=== PATIENT | male | born 1965 | race Caucasian/White ===

== ENCOUNTER 2017-03-17 03:20 | Inpatient (IN) | payer OTHER ==
[2017-03-17] MEDS ORDERED: KETOROLAC 15 MG/1 ML SDV IVP ONE (04:04)
[2017-03-17 04:28] LABS: ABSOLUTE IMMATURE GRANULOCYTES 0.24 10^3/uL (0.00-0.10); ADD DIFF? NO; ADD MORPH? NO; ADD SCAN? NO; ATYPICAL LYMPHOCYTE FLAG 0 (0-99); FRAGMENT RBC FLAG 0 (0-99); HEMATOCRIT 48.3 % (40.0-51.0); HEMOGLOBIN 16.9 g/dL (13.7-17.5); LEFT SHIFT FLG 10 (0-99); LIPEMIA HEMOLYSIS FLAG 90 (0-99); MEAN CELL HEMOGLOBIN 32.8 pg (27.9-34.1); MEAN CELL VOLUME 93.6 fL (81.5-99.8); MEAN PLATELET VOLUME 11.7 fL (8.7-11.7); PLATELET CLUMPS FLAG 10 (0-99); PLATELET COUNT 290 10^3/uL (150-400); RED BLOOD CELL COUNT 5.16 10^6/uL (4.40-6.38); RED CELL DISTRIBUTION WIDTH 12.9 % (11.5-15.2)
[2017-03-17 04:35] LABS: COLOR RED; LEUKOCYTE ESTERASE,URINE 2+ (NEGATIVE); NITRITE,URINE NEGATIVE (NEGATIVE)
[2017-03-17 04:41] LABS: ANION GAP 13 mEq/L (8-16); CALCIUM 10.2 mg/dL (8.5-10.4); CARBON DIOXIDE 20 mEq/l (22-31); CHLORIDE 103 mEq/L (97-110); CREATININE 1.1 mg/dL (0.7-1.3); GLOMERULAR FILTRATION RATE > 60; GLUCOSE 133 mg/dL (70-100); POTASSIUM 4.3 mEq/L (3.5-5.2); SODIUM 136 mEq/L (134-144)
[2017-03-17 04:52] LABS: BACTERIA 4+ /hpf (NONE SEEN); MUCUS 1+ /lpf (NONE-1+); RBC,URINE 50-182 /hpf (0-3); WBC,URINE 50-182 /hpf (0-3)
--- NOTE | 2017-03-17 05:50 | EDPHY ---
H & P Stated Complaint: rt flank pain, dark urine with "foam" Time Seen by Provider: 03/17/17 03:49 HPI/ROS: Chief Complaint: Right flank pain HPI: 51-year-old male presenting with right flank pain which started at 11 o' clock last night. Has been constant. Denies a history of the same. Did go for a hike on Friday has been feeling well yesterday. Some nausea no vomiting. Some subjective fevers and chills at home. No chest pain or shortness of breath. Moderate abdominal pain on the right-hand side. Pain is nonradiating. There are no aggravating or alleviating factors. He cannot find a comfortable position. It is described as constant at a 8/10. ROS: 10 point Review of Systems is negative except as noted in the HPI. 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, depression Medications: Wellbutrin Allergies: No known drug allergies Social History: No smoking, occasional alcohol, occasional marijuana Family History: non-contributory Physical Exam: Gen: Awake, Alert, No Distress HEENT: Nose: no rhinorrhea Eyes: PERRLA, EOMI Mouth: Moist mucosa Neck: Supple, no JVD Chest: nontender, lungs clear to auscultation Heart: S1, S2 normal, no murmur Abd: Soft, under right mid abdominal tenderness, no guarding Back: no CVA tenderness, no midline tenderness Ext: no edema, non-tender Skin: no rash Neuro: CN II-XII intact, Sensation grossly intact, Strength 5/5 in bilateral upper and lower extremities - Personal History Current Tetanus Diphtheria and Acellular Pertussis (TDAP): Yes Tetanus Vaccine Date: 2010 - Medical/Surgical History Hx Asthma: No Hx Chronic Respiratory Disease: No Hx Diabetes: No Hx Cardiac Disease: No Hx Renal Disease: No Hx Cirrhosis: No Hx Alcoholism: No Hx HIV/AIDS: No Hx Splenectomy or Spleen Trauma: No Other PMH: left shoulder surgery, wrist,anxiety - Social History Smoking Status: Former smoker Constitutional: Initial Vital Signs Temperature (C) 37.7 C 03/17/17 03:22 Heart Rate 116 H 03/17/17 03:22 Respiratory Rate 99 H 03/17/17 03:22 O2 Sat (%) 94 03/17/17 03:22 O2 Delivery Mode Nasal Cannula O2 (L/minute) 2 Allergies/Adverse Reactions: No Known Allergies Allergy (Verified 09/06/13 22:01) Home Medications: Medication Instructions Recorded buPROPion [Wellbutrin 100mg (RX)] 0 mg PO TID 04/23/13 Hydrocodone/APAP 5/325 [[place] 1 - 2 tab PO Q4H PRN #15 tab 04/21/16 5/325] Medical Decision Making - Diagnostics Imaging Results: With severe right hydronephrosis with obstruction at the UPJ with enlargement of the right kidney. Likely chronic as unchanged compared to a IV P from 2006. Interpreted by Dr. Brock. Imaging: I viewed and interpreted images myself ED Course/Re-evaluation: UA results noted. Concerning for definite pyelo or possible infected stone. Will obtain CT scan. White count is significantly elevated. I have ordered ceftriaxone IV. CT scan noted. Is as severe right hydronephrosis with UPJ obstruction. I have discussed with Dr. Jose Ortiz, urology. He is requesting Internal Medicine admission. He would like to contact interventional Radiology for a percutaneous nephrostomy tube placement. He will consult the patient on the floor. I have discussed with Dr. Rodriguez, interventional Radiology. She will plan on placement of the nephrostomy tube this morning. - Data Points Laboratory Results: Laboratory Results 03/17/17 03:40 03/17/17 03:40 03/17/17 03/17/17 03/17/17 03:40 03:40 03:40 WBC 23.37 10^3/uL H 10^3/uL (3.80-9.50) RBC 5.16 10^6/uL 10^6/uL (4.40-6.38) Hgb 16.9 g/dL g/dL (13.7-17.5) Hct 48.3 % % (40.0-51.0) MCV 93.6 fL fL (81.5-99.8) MCH 32.8 pg pg (27.9-34.1) MCHC 35.0 g/dL g/dL (32.4-36.7) RDW 12.9 % % (11.5-15.2) Plt Count 290 10^3/uL 10^3/uL (150-400) MPV 11.7 fL fL (8.7-11.7) Neut % (Auto) 76.6 % H % (39.3-74.2) Lymph % (Auto) 13.1 % L % (15.0-45.0) [place] % (Auto) 8.8 % % (4.5-13.0) Eos % (Auto) 0.1 % L % (0.6-7.6) Baso % (Auto) 0.4 % % (0.3-1.7) Nucleat RBC Rel Count 0.0 % % (0.0-0.2) Absolute Neuts (auto) 17.90 10^3/uL H 10^3/uL (1.70-6.50) Absolute Lymphs (auto) 3.06 10^3/uL H 10^3/uL (1.00-3.00) Absolute Monos (auto) 2.06 10^3/uL H 10^3/uL (0.30-0.80) Absolute Eos (auto) 0.02 10^3/uL L 10^3/uL (0.03-0.40) Absolute Basos (auto) 0.09 10^3/uL 10^3/uL (0.02-0.10) Absolute Nucleated RBC 0.00 10^3/uL 10^3/uL (0-0.01) Immature Gran % 1.0 % % (0.0-1.1) Immature Gran # 0.24 10^3/uL H 10^3/uL (0.00-0.10) Sodium 136 mEq/L mEq/L (134-144) Potassium 4.3 mEq/L mEq/L (3.5-5.2) Chloride 103 mEq/L mEq/L (97-110) Carbon Dioxide 20 mEq/l L mEq/l (22-31) Anion Gap 13 mEq/L mEq/L (8-16) BUN 16 mg/dL mg/dL (7-23) Creatinine 1.1 mg/dL mg/dL (0.7-1.3) Estimated GFR > 60 Glucose 133 mg/dL H mg/dL (70-100) Calcium 10.2 mg/dL mg/dL (8.5-10.4) Urine Color RED Urine Appearance MODERATELY TURBID Urine pH 6.0 (5.0-7.5) Ur Specific [place] 1.014 (1.002-1.030) Urine Protein 2+ H (NEGATIVE) Urine Ketones NEGATIVE (NEGATIVE) Urine Blood 3+ H (NEGATIVE) Urine Nitrate NEGATIVE (NEGATIVE) Urine Bilirubin NEGATIVE (NEGATIVE) Urine Urobilinogen NEGATIVE EU EU (0.2-1.0) Ur Leukocyte Esterase 2+ H (NEGATIVE) Urine RBC 50-182 /hpf H /hpf (0-3) Urine WBC 50-182 /hpf H /hpf (0-3) Ur Epithelial Cells TRACE /lpf /lpf (NONE-1+) Urine Bacteria 4+ /hpf H /hpf (NONE SEEN) Urine Mucus 1+ /lpf /lpf (NONE-1+) Urine Glucose NEGATIVE (NEGATIVE) Medications Given: Discontinued Medications Ceftriaxone Sodium/Dextrose (Rocephin 1 Gm (Premix)) 50 mls @ 100 mls/hr IV EDNOW ONE PRN Reason: Protocol Stop: 03/17/17 05:36 Last Admin: 03/17/17 05:25 Dose: 50 mls Ketorolac Tromethamine (Toradol) 15 mg IVP EDNOW ONE Stop: 03/17/17 04:05 Last Admin: 03/17/17 04:09 Dose: 15 mg Departure - Departure Disposition: [facility] Inpatient Acute Clinical Impression: Urinary tract infection, Hydronephrosis Condition: Fair Referrals: Fortunato Neely MD [Primary Care Provider] - As per Instructions
[2017-03-17] MEDS ORDERED: PROMETHAZINE HCL 25 MG TAB PO PRN (06:32)
[2017-03-17] MEDS ORDERED: ONDANSETRON DISINTEGRATING 4 MG TAB PO PRN (06:32)
[2017-03-17] MEDS ORDERED: PROMETHAZINE HCL 25 MG/ML INJ IVP PRN (06:32)
[2017-03-17] MEDS ORDERED: MAGNESIUM HYDROXIDE 30 ML UDCUP PO PRN (06:34)
[2017-03-17] MEDS ORDERED: LACTULOSE 20 GM/30 ML UDCUP PO PRN (06:34)
[2017-03-17] MEDS ORDERED: BISACODYL 10 MG SUPP PR PRN (06:34)
--- NOTE | 2017-03-17 07:52 | PDGENHP ---
History and Physical - Chief Complaint acute abdominal pain - History of Present Illness primary care provider: Dr. Neely HPI: 51-year-old male presenting with acute abdominal pain characterized as sharp, severe, located in the right flank with onset of symptoms at 11:30 p.m. on the evening of this presentation. He had associated foamy bloody urine and his onset of symptoms was very sudden. The duration has been persistent thereafter and has been mildly alleviated by Dilaudid received in the emergency department. Prior to his onset of symptoms he had otherwise been feeling well and he had physically exerting himself on the day prior to presentation, engaging in an extensive hike. Otherwise denies any recent medication changes reports that he has had good oral intake. He reports that the pain is similar in character to what he experienced 5 years ago when he had hydronephrosis requiring cystoscopy and stent placement at [facility]. History Information - Allergies/Home Medication List Allergies/Adverse Reactions: No Known Allergies Allergy (Verified 09/06/13 22:01) Home Medications: buPROPion [Wellbutrin 100mg (RX)] 0 mg PO TID 04/23/13 [Last Taken Unknown] I have personally reviewed and updated: family history, medical history, social history, surgical history - Past Medical History Additional medical history: Right kidney hydronephrosis and stent placement required, removed - Surgical History Additional surgical history: cystoscopy with stent placement approximately 5 years ago. Ganglion cyst removal - Social History Smoking Status: Former smoker Alcohol Use: Occasionally Drug Use: None Additional social history: physical exert himself a hike Review of Systems ROS: 10pt was reviewed & negative except for what was stated in HPI & below Gastrointestinal: Reports: vomitting, abdominal pain, other ( flank pain) Physical Exam Temp Pulse Resp BP Pulse Ox 36.7 C 72 18 127/89 H 96 03/17/17 06:48 03/17/17 06:48 03/17/17 06:48 03/17/17 06:48 03/17/17 06:48 O2 (L/minute) 2 Constitutional: no apparent distress, uncomfortable, No not in pain ( moderate) , No chronically ill appearing Eyes: PERRL, anicteric sclera, EOMI Ears, Nose, Mouth, Throat: moist mucous membranes, hearing normal, ears appear normal, no oral mucosal ulcers Cardiovascular: regular rate and rhythym, no murmur, rub, or gallop, No edema Respiratory: no respiratory distress, no rales or rhonchi, clear to auscultation Gastrointestinal: tenderness ( right flank), No normoactive bowel sounds ( hypoactive), No guarding, No distension Genitourinary: no bladder fullness, no bladder tenderness Neurologic: AAOx3, sensation intact bilaterally, No weakness ( motor 5/5 bilateral lower extremity) Psychiatric: interacting appropriately, not anxious, not encephalopathic, thought process linear Lab Data & Imaging Review 03/17/17 03:40 03/17/17 03:40 WBC 23.37 10^3/uL (3.80-9.50) H 03/17/17 03:40 RBC 5.16 10^6/uL (4.40-6.38) 03/17/17 03:40 Hgb 16.9 g/dL (13.7-17.5) 03/17/17 03:40 Hct 48.3 % (40.0-51.0) 03/17/17 03:40 MCV 93.6 fL (81.5-99.8) 03/17/17 03:40 MCH 32.8 pg (27.9-34.1) 03/17/17 03:40 MCHC 35.0 g/dL (32.4-36.7) 03/17/17 03:40 RDW 12.9 % (11.5-15.2) 03/17/17 03:40 Plt Count 290 10^3/uL (150-400) 03/17/17 03:40 MPV 11.7 fL (8.7-11.7) 03/17/17 03:40 Neut % (Auto) 76.6 % (39.3-74.2) H 03/17/17 03:40 Lymph % (Auto) 13.1 % (15.0-45.0) L 03/17/17 03:40 [place] % (Auto) 8.8 % (4.5-13.0) 03/17/17 03:40 Eos % (Auto) 0.1 % (0.6-7.6) L 03/17/17 03:40 Baso % (Auto) 0.4 % (0.3-1.7) 03/17/17 03:40 Nucleat RBC Rel Count 0.0 % (0.0-0.2) 03/17/17 03:40 Absolute Neuts (auto) 17.90 10^3/uL (1.70-6.50) H 03/17/17 03:40 Absolute Lymphs (auto) 3.06 10^3/uL (1.00-3.00) H 03/17/17 03:40 Absolute Monos (auto) 2.06 10^3/uL (0.30-0.80) H 03/17/17 03:40 Absolute Eos (auto) 0.02 10^3/uL (0.03-0.40) L 03/17/17 03:40 Absolute Basos (auto) 0.09 10^3/uL (0.02-0.10) 03/17/17 03:40 Absolute Nucleated RBC 0.00 10^3/uL (0-0.01) 03/17/17 03:40 Immature Gran % 1.0 % (0.0-1.1) 03/17/17 03:40 Immature Gran # 0.24 10^3/uL (0.00-0.10) H 03/17/17 03:40 Sodium 136 mEq/L (134-144) 03/17/17 03:40 Potassium 4.3 mEq/L (3.5-5.2) 03/17/17 03:40 Chloride 103 mEq/L (97-110) 03/17/17 03:40 Carbon Dioxide 20 mEq/l (22-31) L 03/17/17 03:40 Anion Gap 13 mEq/L (8-16) 03/17/17 03:40 BUN 16 mg/dL (7-23) 03/17/17 03:40 Creatinine 1.1 mg/dL (0.7-1.3) 03/17/17 03:40 Estimated GFR > 60 03/17/17 03:40 Glucose 133 mg/dL (70-100) H 03/17/17 03:40 Calcium 10.2 mg/dL (8.5-10.4) 03/17/17 03:40 Urine Color RED 03/17/17 03:40 Urine Appearance MODERATELY TURBID 03/17/17 03:40 Urine pH 6.0 (5.0-7.5) 03/17/17 03:40 Ur Specific [place] 1.014 (1.002-1.030) 03/17/17 03:40 Urine Protein 2+ (NEGATIVE) H 03/17/17 03:40 Urine Ketones NEGATIVE (NEGATIVE) 03/17/17 03:40 Urine Blood 3+ (NEGATIVE) H 03/17/17 03:40 Urine Nitrate NEGATIVE (NEGATIVE) 03/17/17 03:40 Urine Bilirubin NEGATIVE (NEGATIVE) 03/17/17 03:40 Urine Urobilinogen NEGATIVE EU (0.2-1.0) 03/17/17 03:40 Ur Leukocyte Esterase 2+ (NEGATIVE) H 03/17/17 03:40 Urine RBC 50-182 /hpf (0-3) H 03/17/17 03:40 Urine WBC 50-182 /hpf (0-3) H 03/17/17 03:40 Ur Epithelial Cells TRACE /lpf (NONE-1+) 03/17/17 03:40 Urine Bacteria 4+ /hpf (NONE SEEN) H 03/17/17 03:40 Urine Mucus 1+ /lpf (NONE-1+) 03/17/17 03:40 Urine Glucose NEGATIVE (NEGATIVE) 03/17/17 03:40 Visualized and Interpreted imaging results: Yes Interpretation: abdominal CT demonstrating right-sided hydronephrosis, approximately 14 cm, no identifiable stone, dilation and the UPJ Assessment & Plan Assessment: 51-year-old male presenting with acute hydronephrosis and pyelonephritis Plan: 1. Pyelonephritis. Acute, new problem this provider, further workup indicated. Evidenced by positive urinalysis, significant leukocytosis, flank tenderness in the setting of hydronephrosis, most likely predispose to obstruction in the same area that he has had prior issues - reviewed outside records including 09/06/2013 x-ray of the abdomen demonstrates no stone at that time - order outside records from [facility] to determine what the exact cause of his original obstruction was - discussed with Dr. Stewart in the emergency department, he has informed me that the patient has received 1 g of IV ceftriaxone - send urine culture - repeat CBC tomorrow a.m. - continue IV fluids high rate 2. Hydronephrosis. Acute on chronic, approximately 14 cm across, requiring urgent interventional procedure to decompress - discussed with Dr. Stewart, he has reported to me that urology recommended percutaneous nephrostomy tube and Dr. Heather Rodriguez has been contacted for placement this morning - continue to monitor urine output serum creatinine level Diet. NPO with IV fluids Prophylaxis. Low risk patient, SCDs hold pharm given procedure Code. Full Disposition. Anticipated discharge is 03/18/2017, pending further stabilization as outlined above.
[2017-03-17] MEDS: HYDROmorphONE/DILAUDID 1 MG/ML SYR IVP PRN ×3 (07:59→16:04)
[2017-03-17] MEDS: SENNOSIDES/DOCUSATE SODIUM TAB PO SCH ×2 (08:44→19:53)
[2017-03-17] MEDS: HYDROmorphONE/DILAUDID 2 MG TAB PO PRN ×3 (08:45→21:53)
[2017-03-17] MEDS: NS 1,000 ML IV SCH ×2 (08:46→19:11)
[2017-03-17] MEDS: ONDANSETRON 4 MG/2 ML VIAL IVP PRN ×2 (10:39→19:53)
[2017-03-17 11:32] LABS: APTT 26.3 SEC (23.0-38.0); INR 1.23 (0.83-1.16); PROTIME(PATIENT) 15.5 SEC (12.0-15.0)
[2017-03-17] MEDS ORDERED: fentaNYL 100 MCG/2 ML INJ ONE (12:04)
[2017-03-17] MEDS ORDERED: MIDAZOLAM 2 MG/2 ML VIAL ONE (12:05)
[2017-03-17] MEDS ORDERED: IOPAMIDOL (ISOVUE-300) 100 ML BTL ONE (12:25)
[2017-03-17] MEDS ORDERED: LIDOCAINE 1% 300 MG/30 ML SDV ONE (12:25)
--- NOTE | 2017-03-17 13:05 | POSTOPPROG ---
Post Op Note Date of Operation: 03/17/17 Surgeon: Cb Montes De Oca Anesthesia: IV Sedation Pre-op Diagnosis: UTI, right hydronephrosis without stone Post-op Diagnosis: same Indication: Obstructive Urosepsis Procedure: Percutaneous right nephrostomy Findings: Good position. Right UPJ obstruction, severe hydronephrosis Inf/Abcess present in the surg proc area at time of surgery?: Yes Depth: Organ Space (Right renal collecting system) Drains: Nephrostomy (10 F pigtail.) Specimen(s): 15 ml brown urine sent for microbiology.
[2017-03-17] MEDS: ACETAMINOPHEN 325 MG TAB PO PRN ×2 (16:03→21:06)
[2017-03-17] MEDS ORDERED: [UNRECOGNIZED DRUG - OTHER] PO PRN (17:44)
--- NOTE | 2017-03-17 17:45 | HOSPPROG ---
Hospitalist Progress Note Assessment/Plan: # sepsis d/t pyelo - resolved with IVF # pyelonephritis with acute on chronic R sided obstructive nephropathy s/p nephrostomy # R hydronephrosis 35 minutes of direct patient care, face to face time spent today from 5:10 to 5: 45 Objective: Vital Signs Temp Pulse Resp BP Pulse Ox 37.3 C 99 16 124/78 H 94 03/17/17 16:53 03/17/17 16:53 03/17/17 16:53 03/17/17 16:53 03/17/17 16:53 Microbiology 03/17/17 12:20 Gram Stain - Final Other - Aspirate 03/16/17 03/17/17 03/18/17 05:59 05:59 05:59 Intake Total 400 Output Total 350 Balance 50 PT 15.5 SEC (12.0-15.0) H 03/17/17 10:50 INR 1.23 (0.83-1.16) H 03/17/17 10:50 ICD10 Worksheet Patient Problems: Problems Problem Status Onset Hydronephrosis Acute Urinary tract infection Acute
--- NOTE | 2017-03-17 19:22 | SOAPPROG ---
SOAP Progress Note Assessment/Plan: Assessment: Hydronephrosis Acute UPJ obstruction and plan for drainage and assessment for repair in future Urinary tract infection Acute Rxed appropirately Plan: Continue present care 03/17/17 19:20 Subjective: flank pain and neph tube in place Objective: Vital Signs Temp Pulse Resp BP Pulse Ox 37.3 C 99 16 124/78 H 94 03/17/17 16:53 03/17/17 16:53 03/17/17 16:53 03/17/17 16:53 03/17/17 16:53 Microbiology 03/17/17 12:20 Gram Stain - Final Other - Aspirate 03/16/17 03/17/17 03/18/17 05:59 05:59 05:59 Intake Total 400 Output Total 650 Balance -250 PT 15.5 SEC (12.0-15.0) H 03/17/17 10:50 INR 1.23 (0.83-1.16) H 03/17/17 10:50 Physical Exam - Physical Exam General Appearance: alert Respiratory: No respiratory distress Cardiac/Chest: regular rate, rhythm Abdomen: soft Skin: warm/dry Extremities: No calf tenderness Neuro/Psych: alert, oriented x 3 ICD10 Worksheet Patient Problems: Problems Problem Status Onset Hydronephrosis Acute Urinary tract infection Acute
[2017-03-17] MEDS: buPROPion SR 150 MG TAB PO SCH (19:54)
[2017-03-18] MEDS: ACETAMINOPHEN 325 MG TAB PO PRN ×3 (00:18→21:21)
[2017-03-18] MEDS: NS 1,000 ML IV SCH ×3 (01:23→19:26)
[2017-03-18] MEDS: HYDROmorphONE/DILAUDID 1 MG/ML SYR IVP PRN (01:23)
[2017-03-18] MEDS: HYDROmorphONE/DILAUDID 2 MG TAB PO PRN ×2 (04:56→15:47)
[2017-03-18 05:52] LABS: % IMMATURE GRANULYOCYTES 0.7 % (0.0-1.1); ADD DIFF? NO; ADD MORPH? NO; ADD SCAN? NO; ATYPICAL LYMPHOCYTE FLAG 0 (0-99); FRAGMENT RBC FLAG 0 (0-99); HEMATOCRIT 41.7 % (40.0-51.0); HEMOGLOBIN 14.2 g/dL (13.7-17.5); LEFT SHIFT FLG 0 (0-99); LIPEMIA HEMOLYSIS FLAG 90 (0-99); MEAN CELL HEMOGLOBIN 33.1 pg (27.9-34.1); MEAN CELL HEMOGLOBIN CONCENTR. 34.1 g/dL (32.4-36.7); MEAN CELL VOLUME 97.2 fL (81.5-99.8); PLATELET CLUMPS FLAG 0 (0-99); PLATELET COUNT 213 10^3/uL (150-400); RED BLOOD CELL COUNT 4.29 10^6/uL (4.40-6.38)
[2017-03-18 06:21] LABS: ALANINE AMINOTRANSFERASE 40 IU/L (21-72); ALBUMIN 3.1 g/dL (3.5-5.0); ALKALINE PHOSPHATASE 44 IU/L (38-126); ANION GAP 9 mEq/L (8-16); ASPARTATE AMINOTRANSFERASE 24 IU/L (17-59); BILIRUBIN,TOTAL 1.2 mg/dL (0.1-1.4); CALCIUM 8.6 mg/dL (8.5-10.4); CARBON DIOXIDE 23 mEq/l (22-31); CHLORIDE 101 mEq/L (97-110); CREATININE 0.9 mg/dL (0.7-1.3); GLOMERULAR FILTRATION RATE > 60; GLUCOSE 104 mg/dL (70-100); POTASSIUM 3.9 mEq/L (3.5-5.2); SODIUM 133 mEq/L (134-144); TOTAL PROTEIN 5.6 g/dL (6.3-8.2)
[2017-03-18] MEDS: buPROPion SR 150 MG TAB PO SCH ×3 (08:16→21:27)
[2017-03-18] MEDS: SENNOSIDES/DOCUSATE SODIUM TAB PO SCH ×2 (08:16→21:20)
--- NOTE | 2017-03-18 15:48 | SOAPPROG ---
SOAP Progress Note Assessment/Plan: Assessment: Hydronephrosis Acute UPJ obstruction and plan for drainage and assessment for repair in future Urinary tract infection Acute Rxed appropirately for E. Coli, sensitivities pending Plan: Continue present care 03/18/17 15:47 Subjective: doing better Objective: Vital Signs Temp Pulse Resp BP Pulse Ox 37.4 C 91 16 113/78 91 L 03/18/17 08:00 03/18/17 08:00 03/18/17 08:00 03/18/17 08:00 03/18/17 08:00 Microbiology 03/17/17 12:20 Gram Stain - Final Other - Aspirate Laboratory Results 03/18/17 05:36 03/18/17 05:36 03/17/17 03/18/17 03/19/17 05:59 05:59 05:59 Intake Total 2775 Output Total 1575 1950 Balance 1200 -1950 PT 15.5 SEC (12.0-15.0) H 03/17/17 10:50 INR 1.23 (0.83-1.16) H 03/17/17 10:50 Physical Exam - Physical Exam General Appearance: alert Neck: supple Respiratory: No respiratory distress Abdomen: soft Neuro/Psych: alert ICD10 Worksheet Patient Problems: Problems Problem Status Onset Hydronephrosis Acute Urinary tract infection Acute
--- NOTE | 2017-03-18 15:52 | HOSPPROG ---
Hospitalist Progress Note Assessment/Plan: # sepsis d/t pyelo - resolved with IVF # pyelonephritis with acute on chronic R sided obstructive nephropathy s/p nephrostomy - e. coli in urine - cont rocephin, taper based on sensitivities # R hydronephrosis d/t congenital stricture - dr carlos involved Subjective: fevers last night Objective: Vital Signs Temp Pulse Resp BP Pulse Ox 37.4 C 91 16 113/78 91 L 03/18/17 08:00 03/18/17 08:00 03/18/17 08:00 03/18/17 08:00 03/18/17 08:00 Microbiology 03/17/17 12:20 Gram Stain - Final Other - Aspirate Laboratory Results 03/18/17 05:36 03/18/17 05:36 03/17/17 03/18/17 03/19/17 05:59 05:59 05:59 Intake Total 2775 Output Total 1575 1950 Balance 1200 -1950 PT 15.5 SEC (12.0-15.0) H 03/17/17 10:50 INR 1.23 (0.83-1.16) H 03/17/17 10:50 - Time Spent With Patient Time Spent with Patient: greater than 25 minutes Time Spent with Patient: Greater than 25 minutes spent on this patients care, greater than 50% of time spent counseling, educating, and coordinating care regarding the above mentioned plan. - Physical Exam Constitutional: no apparent distress, appears nourished Cardiovascular: regular rate and rhythym, no murmur, rub, or gallop, systolic murmur Respiratory: no respiratory distress, no rales or rhonchi, clear to auscultation Gastrointestinal: normoactive bowel sounds, tenderness (L sided), No ascites, No hepatosplenomegally, No guarding, No rebound, No distension ICD10 Worksheet Patient Problems: Problems Problem Status Onset Urinary tract infection Acute Hydronephrosis Acute
--- NOTE | 2017-03-18 16:17 | GCON ---
[f rep st] CONSULTATION DATE OF CONSULTATION: 03/17/2017 REASON FOR CONSULTATION: I have been asked to see this gentleman by Dr. Irving for a right-sided hy dronephrosis, UPJ and urosepsis. HISTORY OF PRESENT ILLNESS: This patient is a 51-year-old gentleman who had abdominal pain that was sharp and intense and seen in the emergency room,and a CAT scan revealed hydronephrosis with a UPJ obstruction. He had an elevated white count and appeared to have urosepsis. He was admitted to the hospital, and we had asked that a nephrostomy tube be placed. I reviewed the nephrostomy tube proc edure with the patient and the family member and tried to show him the problem and that he has a ure teropelvic junction obstruction. It is not sure why he previously had had a stent placed without re pair 5 years ago, but at the present time, he has the above diagnosis of urosepsis, pyelonephritis, hydronephrosis and primary ureteropelvic junction obstruction. ALLERGIES: No known drug allergies. MEDICATIONS: Wellbutrin. Family history, social history, surgical history, and medical history have been well documented; I braxton condon reviewed those. He has had the hydronephrosis noted before. He has had a cystoscopy stent plac ement 5 years ago and the a ganglion cystectomy. SOCIAL HISTORY: Former smoker. Occasional alcohol. Nondrug use. REVIEW OF SYSTEMS: Negative cardiac, respiratory, GI and endocrine. PHYSICAL EXAM: VITAL SIGNS: On admission, vital signs stable. CHEST: Clear. ABDOMEN: Normal. He had the right nephrostomy tube placed. I had attempted to see him at noon prior to that and that was not possible, so I saw him later. He had actually somewhat narcotized because of the narcotics use, but he was oriented x3. PSYCH: He had appropriate reaction to the medical assessment and the flank had some tenderness over the site where the nephrostomy tube was. LABORATORY DATA: I reviewed all his labs and imaging studies. At the present time, he is to be adm itted for percutaneous nephrostomy tube placement, IV antibiotics, hydration and monitoring. He jose r l need to have further assessment in the ureteropelvic junction with obstruction repair, i.e., pyelo plasty in the future. I discussed this potentially with him, indications, complications and options and will discuss that further when he has recovered from this acute medical septic event. /[id number]/MODL
[2017-03-18] MEDS ORDERED: LORazepam 0.5 MG TAB PO ONE (21:45)
[2017-03-19] MEDS: LORazepam 0.5 MG TAB PO PRN ×2 (04:15→08:11)
[2017-03-19 04:39] LABS: % IMMATURE GRANULYOCYTES 0.6 % (0.0-1.1); ABSOLUTE IMMATURE GRANULOCYTES 0.07 10^3/uL (0.00-0.10); ADD DIFF? NO; ADD MORPH? NO; ADD SCAN? NO; ATYPICAL LYMPHOCYTE FLAG 0 (0-99); FRAGMENT RBC FLAG 0 (0-99); HEMATOCRIT 40.1 % (40.0-51.0); HEMOGLOBIN 13.7 g/dL (13.7-17.5); LEFT SHIFT FLG 0 (0-99); LIPEMIA HEMOLYSIS FLAG 90 (0-99); MEAN CELL HEMOGLOBIN 32.9 pg (27.9-34.1); MEAN CELL HEMOGLOBIN CONCENTR. 34.2 g/dL (32.4-36.7); MEAN CELL VOLUME 96.4 fL (81.5-99.8); MEAN PLATELET VOLUME 10.6 fL (8.7-11.7); PLATELET CLUMPS FLAG 30 (0-99); PLATELET COUNT 215 10^3/uL (150-400); RED BLOOD CELL COUNT 4.16 10^6/uL (4.40-6.38); RED CELL DISTRIBUTION WIDTH 12.7 % (11.5-15.2)
[2017-03-19] MEDS: POLYETHYLENE GLYCOL 3350 17 GM PKT PO PRN (04:41)
[2017-03-19] MEDS: buPROPion SR 150 MG TAB PO SCH ×2 (08:11→21:53)
[2017-03-19] MEDS: SENNOSIDES/DOCUSATE SODIUM TAB PO SCH ×2 (08:11→21:53)
[2017-03-19] MEDS: DIAZEPAM 5 MG TAB PO PRN ×2 (15:45→22:00)
--- NOTE | 2017-03-19 15:46 | HOSPPROG ---
Hospitalist Progress Note Assessment/Plan: # sepsis d/t pyelo - resolved with IVF # pyelonephritis with acute on chronic R sided obstructive nephropathy s/p nephrostomy - e. coli in urine - cont rocephin, change to FQ on dc # R hydronephrosis d/t congenital stricture - dr carlos involved - planning definitive procedure after dc Subjective: ongoing R sided abd pain; significant sweats last night Objective: Vital Signs Temp Pulse Resp BP Pulse Ox 36.9 C 76 18 118/88 H 91 L 03/19/17 08:10 03/19/17 08:10 03/19/17 08:10 03/19/17 08:10 03/19/17 08:10 Laboratory Results 03/19/17 04:32 03/18/17 03/19/17 03/20/17 05:59 05:59 05:59 Intake Total 4575 Output Total 925 Balance 3650 PT 15.5 SEC (12.0-15.0) H 03/17/17 10:50 INR 1.23 (0.83-1.16) H 03/17/17 10:50 - Time Spent With Patient Time Spent with Patient: greater than 25 minutes Time Spent with Patient: Greater than 25 minutes spent on this patients care, greater than 50% of time spent counseling, educating, and coordinating care regarding the above mentioned plan. - Physical Exam Constitutional: no apparent distress, appears nourished Gastrointestinal: other (soft, some TTP R sided) ICD10 Worksheet Patient Problems: Problems Problem Status Onset Urinary tract infection Acute Hydronephrosis Acute
[2017-03-19] MEDS: ACETAMINOPHEN 325 MG TAB PO PRN (18:44)
[2017-03-19] MEDS: NS 1,000 ML IV SCH (22:02)
[2017-03-20 04:42] LABS: ABSOLUTE IMMATURE GRANULOCYTES 0.07 10^3/uL (0.00-0.10); ADD DIFF? NO; ADD MORPH? NO; ADD SCAN? NO; ATYPICAL LYMPHOCYTE FLAG 0 (0-99); FRAGMENT RBC FLAG 0 (0-99); HEMATOCRIT 40.7 % (40.0-51.0); HEMOGLOBIN 13.9 g/dL (13.7-17.5); LEFT SHIFT FLG 0 (0-99); LIPEMIA HEMOLYSIS FLAG 90 (0-99); MEAN CELL HEMOGLOBIN 32.6 pg (27.9-34.1); MEAN CELL HEMOGLOBIN CONCENTR. 34.2 g/dL (32.4-36.7); MEAN CELL VOLUME 95.5 fL (81.5-99.8); MEAN PLATELET VOLUME 10.4 fL (8.7-11.7); PLATELET CLUMPS FLAG 0 (0-99); PLATELET COUNT 234 10^3/uL (150-400); RED BLOOD CELL COUNT 4.26 10^6/uL (4.40-6.38); RED CELL DISTRIBUTION WIDTH 12.5 % (11.5-15.2)
[2017-03-20 05:04] LABS: ANION GAP 8 mEq/L (8-16); CALCIUM 9.2 mg/dL (8.5-10.4); CARBON DIOXIDE 26 mEq/l (22-31); CHLORIDE 104 mEq/L (97-110); CREATININE 1.1 mg/dL (0.7-1.3); GLOMERULAR FILTRATION RATE > 60; GLUCOSE 109 mg/dL (70-100); POTASSIUM 3.7 mEq/L (3.5-5.2); SODIUM 138 mEq/L (134-144)
[2017-03-20] MEDS: DIAZEPAM 5 MG TAB PO PRN ×3 (06:40→22:39)
[2017-03-20] MEDS: POLYETHYLENE GLYCOL 3350 17 GM PKT PO PRN (06:42)
[2017-03-20] MEDS: buPROPion SR 150 MG TAB PO SCH ×2 (08:43→21:06)
[2017-03-20] MEDS: SENNOSIDES/DOCUSATE SODIUM TAB PO SCH ×2 (08:43→21:05)
[2017-03-20] MEDS: HYDROCODONE/APAP 5/325 TAB PO PRN ×4 (09:13→22:38)
--- NOTE | 2017-03-20 10:50 | HOSPPROG ---
Hospitalist Progress Note Assessment/Plan: # sepsis d/t pyelo - resolved with IVF # pyelonephritis with acute on chronic R sided obstructive nephropathy s/p nephrostomy - e. coli in urine, arce-sensitive - cont rocephin, change to FQ on dc - check renal US today given ongoing borderline fevers and night sweats # R hydronephrosis d/t congenital stricture - dr carlos involved - planning definitive procedure after dc Subjective: had night sweats again last night; pain better overall Objective: Vital Signs Temp Pulse Resp BP Pulse Ox 36.3 C 73 16 126/88 H 93 03/20/17 08:28 03/20/17 08:28 03/20/17 08:28 03/20/17 08:28 03/20/17 08:28 Laboratory Results 03/20/17 04:36 03/20/17 04:36 03/19/17 03/20/17 03/21/17 05:59 05:59 05:59 Intake Total 4575 3295 Output Total 925 2175 425 Balance 3650 1120 -425 PT 15.5 SEC (12.0-15.0) H 03/17/17 10:50 INR 1.23 (0.83-1.16) H 03/17/17 10:50 - Physical Exam Constitutional: no apparent distress, appears nourished Cardiovascular: regular rate and rhythym, no murmur, rub, or gallop Respiratory: no respiratory distress, no rales or rhonchi, clear to auscultation Gastrointestinal: normoactive bowel sounds, soft, non-tender abdomen ICD10 Worksheet Patient Problems: Problems Problem Status Onset Urinary tract infection Acute Hydronephrosis Acute
[2017-03-20] MEDS: NS 1,000 ML IV SCH ×2 (10:53→18:33)
[2017-03-21] MEDS: HYDROCODONE/APAP 5/325 TAB PO PRN ×4 (02:44→16:46)
[2017-03-21] MEDS: DIAZEPAM 5 MG TAB PO PRN ×3 (05:45→18:30)
[2017-03-21] MEDS: SENNOSIDES/DOCUSATE SODIUM TAB PO SCH ×2 (09:09→21:35)
[2017-03-21] MEDS: buPROPion SR 150 MG TAB PO SCH ×2 (09:10→21:35)
[2017-03-21] MEDS ORDERED: IOPAMIDOL (ISOVUE-300) 100 ML BTL ONE (13:47)
--- NOTE | 2017-03-21 13:54 | HOSPPROG ---
Hospitalist Progress Note Assessment/Plan: DIAGNOSES: # sepsis d/t pyelo - resolved with IVF # pyelonephritis with acute on chronic R sided obstructive nephropathy s/p nephrostomy - e. coli in urine, arce-sensitive - continue rocephin, change to FQ on dc - as his pain has changed in location in suggest to me possibility of psoas involvement, I will order a CT scan to rule out developing psoas abscess or other abscess # R hydronephrosis d/t congenital stricture - I reviewed with Estelle Peraza of Nephrology today. Plan will be to continue to treat him with antibiotics and drainage until complete clearance of infection, at which point he can follow up in clinic with Dr. Shane to plan surgery as described in Dr. Shane consult SUBJECTIVE: overall the patient feels better However he has ongoing pain but the pain is changed in nature and location. At this point he has pain in the right lower groin with any flexion of the right hip and pain in the posterior right lumbar pelvic area with flexion of the left hip against gravity. These pains are aggravated with walking. No nausea or vomiting No fever symptoms OBJECTIVE Vitals reviewed: stable without fever Exam: alert oriented skin warm dry color ok resps not labored lungs clear BSs heart regular abd soft nondistended nontender, bowel sounds present; there is still tenderness in the right mid abdomen over his kidney as well as fairly marked good costovertebral angle tenderness with percussion limbs warm, no edema iv site ok all lab and culture data reviewed today Objective: Vital Signs Temp Pulse Resp BP Pulse Ox 36.5 C 75 20 133/94 H 94 03/21/17 08:23 03/21/17 11:30 03/21/17 11:30 03/21/17 11:30 03/21/17 11:30 Laboratory Results 03/20/17 04:36 03/20/17 04:36 03/20/17 03/21/17 03/22/17 06:59 06:59 06:59 Intake Total 3295 1300 Output Total 2175 1425 Balance 1120 -125 PT 15.5 SEC (12.0-15.0) H 03/17/17 10:50 INR 1.23 (0.83-1.16) H 03/17/17 10:50 - Time Spent With Patient Time Spent with Patient: greater than 35 minutes Time Spent with Patient: Greater than 35 minutes spent on this patients care, greater than 50% of time spent counseling, educating, and coordinating care regarding the above mentioned plan. ICD10 Worksheet Patient Problems: Problems Problem Status Onset Hydronephrosis Acute Urinary tract infection Acute
[2017-03-21] MEDS: NS 1,000 ML IV SCH (18:33)
[2017-03-22] MEDS: HYDROCODONE/APAP 5/325 TAB PO PRN ×3 (00:17→12:35)
[2017-03-22] MEDS: DIAZEPAM 5 MG TAB PO PRN ×2 (00:17→08:32)
[2017-03-22] MEDS: NS 1,000 ML IV SCH ×2 (02:16→09:42)
[2017-03-22 09:11] VITALS: BP 113/79; PULSE 80; RESP 16; TEMP 98.2; O2SAT 93
[2017-03-22] MEDS: buPROPion SR 150 MG TAB PO SCH (10:29)
[2017-03-22] MEDS: SENNOSIDES/DOCUSATE SODIUM TAB PO SCH (10:29)
--- NOTE | 2017-03-22 11:32 | PDDCSUM ---
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 Sudhakar Shane urology PROCEDURES: CT scan of abdomen without contrast Retroperitoneal ultrasound CT scan of abdomen pelvis with contrast HOSPITAL COURSE SUMMARY: This patient presented to the hospital with right flank pain and fevers and acute sepsis. He was found to have evidence of urinary tract infection and pyelonephritis in the setting of chronic right ureteropelvic junction obstruction and hydronephrosis. Cultures grew a sensitive E coli. He was fluid resuscitated and started promptly on antibiotics. He also had placement of a percutaneous nephrostomy drain tube which remains in place. He has recovered nicely. He still has a little bit of pain In the right flank however it is much improved and is up ambulating well and eating well. His percutaneous nephrostomy drain is functioning normally. At this point he is stable for discharge to home with ongoing antibiotics. He is evaluated here by Dr. Sudhakar Shane. Dr. Shane is recommending that we replant his ureter in a more normal in functional location on his bladder once he has recovered completely from his infection. The patient will follow up with Dr. Shane in clinic to arrange this procedure. PENDING TEST RESULTS: None The patient is instructed on the home care of his urostomy tube and bag. MEDICATION CHANGES: Addition of levofloxacin 750 mg daily to complete total 2 week antibiotic course FOLLOW-UP PLAN: with Dr Shane in clinic next week Greater than 35 minutes bedside and care coordination time today
== END 2017-03-22 14:30 | disposition home or self-care (01) | DRG 872 ==
LOC: F1N 08:30 → OBSVTOIN 03-18 15:52
PROVIDERS: ADMIT Internal Medicine; ATTEND Internal Medicine
PROC: 0T9030Z Drainage of Right Kidney with Drainage Device, Percutaneous Approach (ICD-10-PCS; principal; 2017-03-17 12:40)
DX: A41.9 Sepsis, unspecified organism (principal); B96.20 Unspecified Escherichia coli [E. coli] as the cause of diseases classified elsewhere; N13.6 Pyonephrosis; Q62.0 Congenital hydronephrosis
CPT/HCPCS: 96365; C1729; C1769; G0378; J0696; J1170; J1644; J1885; J2250; J2405; J3010; Q9967

== ENCOUNTER → 2017-03-26 | Day surgery (SDC) | payer OTHER ==
[~2017-03-26] MED LIST: IOPAMIDOL (ISOVUE-300) 100 ML BTL ONE
== END | disposition home or self-care (01) ==
LOC: FIMAGING 14:02
PROVIDERS: ATTEND Specialist
DX: Z43.6 Encounter for attention to other artificial openings of urinary tract (principal); N13.9 Obstructive and reflux uropathy, unspecified
CPT/HCPCS: Q9967

== ENCOUNTER 2017-04-01 11:28 | Observation (INO) | payer OTHER ==
--- NOTE | 2017-03-31 18:13 | GHP ---
[f rep st] PREOP HISTORY AND PHYSICAL DATE OF ADMISSION: 04/01/2017 ADMISSION DIAGNOSIS: Right ureteropelvic junction obstruction. HISTORY OF PRESENT ILLNESS: This is a 51-year-old gentleman who has a right ureteropelvic junction obstruction and has had a nephrostomy tube for treatment after hydronephrosis and pyelonephritis. Rex oliver has had a nephrostogram that reveals complete obstruction at the present time, and he is admitted for a right-sided robotic-assisted dismembered pyeloplasty. Indication, complications, and options have been discussed. Written and verbal consent has been obtained. He has good urinary output of t hat kidney and nephrectomy seems to be not indicated at this time. PAST MEDICAL HISTORY: He has had BPH with obstruction, hydronephrosis of the kidney, UPJ obstructio n to the right, and history of urosepsis. PAST SURGERY: Ureteral stent, vasectomy, wrist and shoulder. MEDICATIONS: Include bupropion hydrochloride 150 mg a day, diazepam 5 mg, hydrocodone 5/325. ALLERGIES: No known drug allergies. FAMILY HISTORY: Positive for kidney stones. SOCIAL HISTORY: Moderate alcohol consumption. Former smoker. 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 Denies illicit subs tance use. IMMUNIZATIONS: He had influenza in 2017 as well as PCV 2017. REVIEW OF SYSTEMS: Negative for cardiac, respiratory, GI, and endocrine. Positive nocturia occasio raghavendra. PHYSICAL EXAMINATION: VITAL SIGNS: On admission, blood pressure 124/84, heart rate 90, respiration s 16, BMI 30.41. HEAD EARS, EYES, NOSE, THROAT: Normal. CHEST: Clear. HEART: Regular rate and rhythm. ABDOMEN: Normal. No organomegaly, rebound, or guarding. EXTREMITIES: Lower extremities are normal. At the present time, he is admitted for a robotic-assisted right dismembered pyeloplasty. Indicatio n, complications, and options have been discussed. Written and verbal consent was obtained. He is admitted for the above procedure. /[id number]/MODL
--- NOTE | 2017-04-01 11:48 | PDHPUP ---
History & Physical Update H&P update statement: This history and physical update is based on an assessment of the patient which was completed after admission or registration (within 24 hours), but prior to the surgery/procedure. H&P update: H&P reviewed & patient examined, no change in patient's condition since H&P completed
[2017-04-01] MEDS ORDERED: ceFAZolin 2 GM/DEXTROSE 100 ML IV ONE (11:49)
[2017-04-01] MEDS ORDERED: LR 1,000 ML IV ONE (12:02)
--- NOTE | 2017-04-01 12:08 | PDANEPAE ---
ANE History of Present Illness pyeloplasty ANE Past Medical History - Cardiovascular History Hx Hypertension: No Hx Arrhythmias: No Hx Chest Pain: No Hx Coronary Artery / Peripheral Vascular Disease: No Hx CHF / Valvular Disease: No Hx Palpitations: No - Pulmonary History Hx COPD: No Hx Recent Upper Respiratory Infection: No Hx Oxygen in Use at Home: No - Endocrine History Hx Diabetes: No - Renal History Hx Renal Disorders: Yes - Liver History Hx Hepatic Disorders: No - Chronic Pain History Chronic Pain: No ANE Review of Systems - Exercise capacity METS (RN): 4 METS ANE Patient History - Allergies Allergies/Adverse Reactions: No Known Allergies Allergy (Verified 09/06/13 22:01) - Home Medications Home medications: home medication list seen and reviewed Home Medications: Aspirin [Aspirin 81mg (*)] 81 mg PO DAILY 03/17/17 [Last Taken 03/16/17] Avanafil [Stendra] 100 mg PO DAILY PRN 03/17/17 [Last Taken Unknown] Herbals/Supplements -Info Only 1 ea PO DAILY 03/17/17 [Last Taken Unknown] buPROPion SR [Wellbutrin 150mg SR (*)] 150 mg PO BID 03/17/17 [Last Taken 09:00] - NPO status NPO Since - Liquids (Date): 03/31/17 NPO Since - Liquids (Time): 04:00 NPO Since - Solids (Date): 03/31/17 NPO Since - Solids (Time): 22:00 - Anes Hx Anes Hx: no prior problems - Smoking Hx Smoking Status: Former smoker ANE Labs/Vital Signs - Vital Signs Blood Pressure: 109/80 Heart Rate: 81 Respiratory Rate: 18 O2 Sat (%): 92 Height: 172.72 cm Weight: 92.986 kg ANE Physical Exam - Airway Mallampati Score: Class 2 Mouth exam: normal dental/mouth exam - Pulmonary Pulmonary: no respiratory distress - Cardiovascular Cardiovascular: regular rate and rhythym - ASA Status ASA Status: II ANE Anesthesia Plan Anesthesia Plan: general endotracheal anesthesia
[2017-04-01] MEDS ORDERED: ROCURONIUM 100 MG/10 ML VIAL ONE (12:12)
[2017-04-01] MEDS ORDERED: ONDANSETRON 4 MG/2 ML VIAL ONE (12:12)
[2017-04-01] MEDS ORDERED: LIDOCAINE 2% 5 ML SDV ONE (12:12)
[2017-04-01] MEDS ORDERED: DEXAMETHASONE 4 MG/ML VIAL ONE (12:12)
[2017-04-01] MEDS ORDERED: PROPOFOL 200 MG/20 ML VIAL ONE (12:13)
[2017-04-01] MEDS ORDERED: fentaNYL 100 MCG/2 ML INJ ONE ×4 (12:13→16:22)
[2017-04-01] MEDS ORDERED: MIDAZOLAM 2 MG/2 ML VIAL IVP ONE (12:43)
[2017-04-01] MEDS ORDERED: ONDANSETRON 4 MG/2 ML VIAL IVP PRN ×2 (13:50→15:29)
[2017-04-01] MEDS ORDERED: LR 500 ML IV PRN (13:50)
[2017-04-01] MEDS ORDERED: MEPERIDINE 25 MG/ML SYR IVP PRN (13:50)
[2017-04-01] MEDS ORDERED: LABETALOL HCL 50 MG/10 ML SYR IVP PRN (13:50)
[2017-04-01] MEDS ORDERED: NALOXONE HCL 0.4 MG/ML INJ IVP PRN ×2 (13:50→15:29)
[2017-04-01] MEDS ORDERED: PROMETHAZINE HCL 25 MG/ML INJ IVP PRN (13:50)
[2017-04-01] MEDS ORDERED: ALBUTEROL 3 ML DEYVIAL IH PRN (13:50)
[2017-04-01] MEDS ORDERED: ROCURONIUM 50 MG/5 ML VIAL ONE (14:22)
[2017-04-01] MEDS ORDERED: THROMBIN(HUM PLAS)/FIBRINOG/CA 5 ML VIAL TP ONE ×2 (14:41→14:52)
[2017-04-01] MEDS ORDERED: SURGIFLO MATRIX KIT WITH THROMBIN TP ONE (14:45)
[2017-04-01] MEDS ORDERED: BUPIVACAINE/EPI 0.5% 30 ML SDV ONE (14:53)
[2017-04-01] MEDS ORDERED: HYDROmorphONE/DILAUDID 2 MG/ML INJ ONE (15:07)
[2017-04-01] MEDS ORDERED: SUGAMMADEX SODIUM 200 MG/2 ML VIAL IVP ONE (15:10)
[2017-04-01] MEDS ORDERED: ACETAMINOPHEN 325 MG TAB PO PRN (15:29)
[2017-04-01] MEDS ORDERED: ONDANSETRON DISINTEGRATING 4 MG TAB PO PRN (15:29)
--- NOTE | 2017-04-01 15:36 | POSTOPPROG ---
Post Op Note Date of Operation: 04/01/17 Surgeon: Sudhakar Shane Electrician Underground: Brooke Anesthesiologist: Geovani Anesthesia: GET(General Endotracheal) Pre-op Diagnosis: rt UPJ obst Post-op Diagnosis: same Indication: same Procedure: RA pyeloplasty Inf/Abcess present in the surg proc area at time of surgery?: No EBL: Minimal Complications: none==dictated op note Drains: Other (stent and vazquez)
--- NOTE | 2017-04-01 15:41 | POSTANESTH ---
Post Anesthetic Evaluation Cardiovascular Status: Normal, Stable Respiratory Status: Normal, Stable Level of Consciousness/Mental Status: Can Participate in Eval Pain Control: Adequate, Prn Tx Ordered Nausea/Vomiting Control: Adequate, Prn Tx Ordered Complications Possibly Related to Anesthesia: None Noted
[2017-04-01] MEDS ORDERED: HYDROmorphONE/DILAUDID 1 MG/ML SYR ONE ×2 (15:50→16:23)
[2017-04-01] MEDS: fentaNYL 100 MCG/2 ML INJ IVP PRN ×4 (15:53→17:09)
[2017-04-01] MEDS: HYDROmorphONE/DILAUDID 1 MG/ML SYR IVP PRN ×6 (15:54→17:08)
[2017-04-01] MEDS ORDERED: KETOROLAC 30 MG/1 ML SDV ONE (16:53)
[2017-04-01] MEDS ORDERED: KETOROLAC 30 MG/1 ML SDV IVP ONE (17:15)
[2017-04-01] MEDS: HYDROmorphONE/DILAUDID 6 MG/30 ML PCA IV PRN (17:57)
[2017-04-01] MEDS: D5W 1/2 NS 1,000 ML IV SCH (17:57)
--- NOTE | 2017-04-01 20:53 | GOP ---
[f rep st] OPERATIVE REPORT DATE OF OPERATION: 04/01/2017 SURGEON: Sudhakar Shane MD POWER HOUSE ENGINEER: Cathi Cox CFA ANESTHESIA: General anesthesia. ANESTHESIOLOGIST: Qasim Olivo MD PREOPERATIVE DIAGNOSIS: Right ureteropelvic junction obstruction. POSTOPERATIVE DIAGNOSIS: Right ureteropelvic junction obstruction. PROCEDURE PERFORMED: Robotic assisted dismembered pyeloplasty (right), ureterotomy for stent placement FINDINGS: Lower pole crossing renal artery causing obstruction SPECIMENS: None obtained. ESTIMATED BLOOD LOSS: Per Anesthesia, less than 50 mL. DESCRIPTION OF PROCEDURE: Mayra underwent general anesthesia and was prepped and draped in normal sterile fashion in the robot position for access to his right ureteropelvic junction. After appropriate time-out and prep and drape, Ioban placed over the abdomen. He had a Veress needle placed in Judd point and insufflated his abdomen to 15 mmHg pressure with carbon dioxide. Then placed a camera port and 1 esl instructional assistant port (each 12 mm), and then two 8 mm robot arm ports. At that point, mobilized the colon, identified the ureter and gonadal vein, dissected the ureter up to the UPJ obstruction. He had a crossing artery at the lower pole, and that was dissected out, and the ureter and UPJ were transected. I spatulated the ureter and brought it anterior to the vessels and then did an anastomosis with a 4-0 Vicryl continuous stitch. It was bridged with a 4-Citizen Of [place] 4.7 multi-length stent that was passed through a 14 Angiocath over a Sensor wire through ureterotomy. It curled in the renal pelvis and, with the length of such, it was in the bladder. Then at that point , after doing the anastomosis, the ureter to the UPJ was off tension and had no suggestion of ischemia. I used biologic glue to reenforce the anastomosis. I elected to not place a drain. He has a nephrostomy tube in. Will let the nephrostomy tube drain tonight and have a nephrostogram tomorrow gently, and have it removed under fluoroscopic guidance via Interventional Radiology. He tolerated the procedure well. PROCEDURE: Right robotic-assisted dismembered pyeloplasty and ureteral stent placement intraoperatively. /[id number]/MODL MTDD
[2017-04-01] MEDS: KETOROLAC 15 MG/1 ML SDV IVP SCH (21:33)
[2017-04-02] MEDS: KETOROLAC 15 MG/1 ML SDV IVP SCH ×3 (04:52→21:35)
[2017-04-02 05:09] LABS: % IMMATURE GRANULYOCYTES 0.6 % (0.0-1.1); ABSOLUTE IMMATURE GRANULOCYTES 0.08 10^3/uL (0.00-0.10); ADD DIFF? NO; ADD MORPH? NO; ADD SCAN? NO; ATYPICAL LYMPHOCYTE FLAG 10 (0-99); FRAGMENT RBC FLAG 0 (0-99); HEMATOCRIT 43.9 % (40.0-51.0); LEFT SHIFT FLG 0 (0-99); LIPEMIA HEMOLYSIS FLAG 90 (0-99); MEAN CELL HEMOGLOBIN 32.4 pg (27.9-34.1); MEAN CELL HEMOGLOBIN CONCENTR. 34.2 g/dL (32.4-36.7); MEAN CELL VOLUME 94.8 fL (81.5-99.8); PLATELET CLUMPS FLAG 0 (0-99); PLATELET COUNT 414 10^3/uL (150-400); RED BLOOD CELL COUNT 4.63 10^6/uL (4.40-6.38); RED CELL DISTRIBUTION WIDTH 12.5 % (11.5-15.2)
[2017-04-02 05:25] LABS: ANION GAP 10 mEq/L (8-16); CALCIUM 9.8 mg/dL (8.5-10.4); CARBON DIOXIDE 23 mEq/l (22-31); CHLORIDE 101 mEq/L (97-110); CREATININE 0.8 mg/dL (0.7-1.3); GLOMERULAR FILTRATION RATE > 60; GLUCOSE 130 mg/dL (70-100); POTASSIUM 4.7 mEq/L (3.5-5.2); SODIUM 134 mEq/L (134-144)
--- NOTE | 2017-04-02 07:22 | SOAPPROG ---
SOAP Progress Note Assessment/Plan: Assessment: Hydronephrosis Acute POD 1, doing well, consider DC Plan: as noted 04/02/17 07:20 Subjective: doing well Objective: Vital Signs Temp Pulse Resp BP Pulse Ox 36.5 C 79 18 100/77 93 04/02/17 04:35 04/02/17 04:35 04/02/17 04:35 04/02/17 04:35 04/02/17 04:35 Laboratory Results 04/02/17 05:00 04/02/17 05:00 04/01/17 04/02/17 04/03/17 05:59 05:59 05:59 Intake Total 2575 Output Total 1725 Balance 850 Physical Exam - Physical Exam General Appearance: alert Neck: supple Respiratory: No respiratory distress Cardiac/Chest: regular rate, rhythm Abdomen: soft Male Genitalia: other (catheter ok) Back: No CVA tenderness Extremities: No calf tenderness Neuro/Psych: alert, oriented x 3 ICD10 Worksheet Patient Problems: Problems Problem Status Onset Hydronephrosis Acute Urinary tract infection Acute
[2017-04-02] MEDS: oxyCODONE IR 5 MG TAB PO PRN (10:21)
[2017-04-02] MEDS ORDERED: IOPAMIDOL (ISOVUE-300) 100 ML BTL ONE (13:01)
[2017-04-02] MEDS: HYDROmorphONE/DILAUDID 6 MG/30 ML PCA IV PRN (16:05)
[2017-04-02] MEDS: D5W 1/2 NS 1,000 ML IV SCH (16:11)
[2017-04-03] MEDS: D5W 1/2 NS 1,000 ML IV SCH (04:43)
[2017-04-03] MEDS: KETOROLAC 15 MG/1 ML SDV IVP SCH ×2 (04:43→13:47)
--- NOTE | 2017-04-03 08:54 | SOAPPROG ---
SOAP Progress Note Assessment/Plan: Assessment: Hydronephrosis Acute POD 2, doing well, consider DC if GI tract and tract fx Plan: as noted 04/03/17 10:49 Subjective: doing well, need to pass gas Objective: Vital Signs Temp Pulse Resp BP Pulse Ox 37.0 C 59 L 18 115/56 L 95 04/03/17 04:00 04/03/17 06:00 04/03/17 06:00 04/03/17 06:00 04/03/17 06:00 Laboratory Results 04/02/17 05:00 04/02/17 05:00 04/02/17 04/03/17 04/04/17 05:59 05:59 05:59 Intake Total 2573 4253.2 Output Total 1725 3000 Balance 850 1253.2 ICD10 Worksheet Patient Problems: Problems Problem Status Onset Hydronephrosis Acute Urinary tract infection Acute
[2017-04-03] MEDS ORDERED: MAGNESIUM HYDROXIDE 30 ML UDCUP PO ONE (10:44)
[2017-04-03] MEDS: oxyCODONE IR 5 MG TAB PO PRN ×2 (12:13→19:31)
[2017-04-03 12:36] VITALS: RESP 16
[2017-04-03 22:45] VITALS: O2SAT 93
[2017-04-03] MEDS: IBUPROFEN 800 MG TAB PO SCH (22:49)
[2017-04-04] MEDS: oxyCODONE IR 5 MG TAB PO PRN (00:29)
[2017-04-04 05:03] VITALS: PULSE 68
[2017-04-04] MEDS: IBUPROFEN 800 MG TAB PO SCH (05:14)
[2017-04-04 08:02] VITALS: BP 123/99; TEMP 98.2
--- NOTE | 2017-04-04 12:57 | GDS ---
[f rep st] DISCHARGE SUMMARY PREOPERATIVE DIAGNOSIS: Right ureteropelvic junction obstruction. POSTOPERATIVE DIAGNOSIS: Right ureteropelvic junction obstruction. The patient was evaluated in our office for right-sided hydronephrosis. After review of imaging, di scussion of options, he elected to have a robotic-assisted pyeloplasty of the right and a ureterotom y for stent placement. He underwent this procedure without difficulty. He is being discharged home in good condition. He is to follow up in our office in approximately 3-4 weeks for consideration o f stent removal. /[id number]/MODL
== END 2017-04-04 11:34 | disposition home or self-care (01) ==
LOC: INTOOBSV 11:28 → F3E 11:28 → F1N 17:48
PROVIDERS: ADMIT Specialist; ATTEND Specialist
PROC: 0T760DZ Dilation of Right Ureter with Intraluminal Device, Open Approach (ICD-10-PCS; principal; 2017-04-01 12:45)
PROC: 0TQ30ZZ Repair Right Kidney Pelvis, Open Approach (ICD-10-PCS; principal; 2017-04-01 12:45)
DX: N13.0 Hydronephrosis with ureteropelvic junction obstruction (principal)
CPT/HCPCS: 50400; 50605; C1769; G0378; C2625; J0690; J1100; J1170; J1885; J2250; J2405; J2704; J3010; Q9967

== ENCOUNTER → 2017-05-27 | Outpatient (CLI) | payer OTHER ==
[~2017-05-27] MED LIST changes: +FUROSEMIDE 40 MG/4 ML VIAL ONE; -IOPAMIDOL (ISOVUE-300) 100 ML BTL ONE
== END ==
LOC: FIMAGING 11:06
PROVIDERS: ATTEND Specialist
DX: Z09 Encounter for follow-up examination after completed treatment for conditions other than malignant neoplasm (principal); N13.30 Unspecified hydronephrosis; Z98.890 Other specified postprocedural states
CPT/HCPCS: A9562; J1940

== ENCOUNTER 2017-07-21 12:03 | Emergency (ER) | payer OTHER ==
[2017-07-21] MEDS ORDERED: ONDANSETRON 4 MG/2 ML VIAL IVP ONE (12:32)
--- NOTE | 2017-07-21 12:49 | CPEKG ---
Heart Rate: 46 RR Interval: 1304 P-R Interval: 204 QRSD Interval: 90 QT Interval: 444 QTC Interval: 389 P [place]: 42 QRS [place]: 33 T Wave [place]: 68 EKG Severity - OTHERWISE NORMAL ECG - EKG Impression: SINUS BRADYCARDIA Electronically Signed By: Jb Pastor 21-Jul-2017 14:15:43
--- NOTE | 2017-07-21 12:53 | EDPHY ---
H & P Smoking Status: Former smoker HPI/ROS: Chief complaint. Abdominal pain HPI. 51-year-old male presents with 1 day history of abdominal pain. He is dizziness and some nausea and vomiting this morning. No diarrhea. No urinary symptoms. Discomfort is the below the umbilicus and he describes as dull. No radiation to his back. He had a ureteral stent in March. Is not worse with movement. No chest discomfort or trouble breathing. No fever ROS Constitutional. no fever/chills, no weakness Eyes. no problems with vision ENT. no sore throat, no nasal drainage Cardiovascular. no chest pain Respiratory. no shortness of breath, no cough Abdominal. Low abdominal pain with nausea and vomiting. No diarrhea . no problems urinating MS. no calf pain/swelling, no neck/back pain, no joint pain Skin. no rash Lymph. no swollen glands Neuro. no headache, no dizziness, no difficulty walking or with speech (Jb Pastor) Past Medical/Surgical History: Past medical history orthopedic surgery, anxiety, right kidney congenital defect with stent in March and then the stent was removed May 2017 (Jb Pastor) Social History: , nonsmoker, no alcohol (Jb Pastor) Physical Exam: General Appearance: Alert well-developed male moderate distress vital signs significant for initial heart rate 48 Eyes: Pupils equal and round no pallor or injection. ENT, Mouth: Mucous membranes are moist. Respiratory: There are no retractions, lungs are clear to auscultation. Cardiovascular: Regular rate and rhythm. Gastrointestinal: Abdomen is soft with low abdominal tenderness that is equal on both sides. No masses. Normal bowel sounds Neurological: Awake and alert, sensory and motor exams grossly normal. Skin: Warm and dry, no rashes. Musculoskeletal: Neck is supple nontender. Extremities symmetrical, full range of motion. Psychiatric: Patient is oriented X 3, there is no agitation. (Jb Pastor) Constitutional: Initial Vital Signs Temperature (C) 37.0 C 07/21/17 12:06 Heart Rate 48 L 07/21/17 12:06 Respiratory Rate 16 07/21/17 12:06 Blood Pressure 143/100 H 07/21/17 12:06 O2 Sat (%) 98 07/21/17 12:06 O2 Delivery Mode Room Air O2 (L/minute) 2 Allergies/Adverse Reactions: No Known Allergies Allergy (Verified 09/06/13 22:01) Home Medications: Medication Instructions Recorded Aspirin [Aspirin 81mg (*)] 81 mg PO DAILY 03/17/17 Avanafil [Stendra] 100 mg PO DAILY PRN 03/17/17 buPROPion SR [Wellbutrin 150mg SR 150 mg PO BID 03/17/17 (*)] Ketorolac Tromethamine [Toradol] 10 mg PO Q6H #10 tab 07/21/17 Lexapro 07/21/17 Medical Decision Making - Diagnostics EKG Interpretation: EKG interpreted by me shows sinus bradycardia with normal interval and axis. QRS is normal. There is slight he ST depression in V3 through V5. Rate is [address] depression is this new and not present on previous EKG from January 2010 ( Jb Pastor) A repeat EKG obtained and was read and documented in trace view. Please see trace view for full reading and report. improved, better baseline, no significant ischemic changes (Jorge Souza) Imaging Results: Imaging Impressions Abdomen CT 07/21/17 12:59 Impression: 1. Right chronic UPJ obstruction, with postsurgical changes, cortical scarring , and probable diminished function, similar to the previous study. 2. No nephrolithiasis or left urinary tract obstruction. 3. Mild constipation. 4. No appendicitis, bowel obstruction, pneumoperitoneum, or drainable abscess. 5. No aortic aneurysm. 6. 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 Findings and recommendations discussed with Emergency Department physician, Dr. Souza, at 1510 hours, on July 21, 2017. Final report concurs with initial preliminary interpretation. Procedures: IV normal saline monitor. Patient is noted to have bradycardia down to about 37 however he does not have any symptoms with this. Morphine and Zofran for discomfort Subsequent Dilaudid for discomfort at 2:10 p.m. (Jb Pastor) ED Course/Re-evaluation: 4:00 p.m. the patient is feeling much better on my examination. No abdominal tenderness. He is worried that the pain will come back. I will treat with Toradol. He does not like narcotics. His kidney function is good. He will follow up with his regular doctor tomorrow or return here for re-evaluation. He is reassured by the lab work and CT scan done today. It sounds as though he did have severe pain however. I gave him strict return precautions. (Jorge Souza) Differential Diagnosis: Partial list of the Differential diagnosis considered include but were not limited to; kidney stone, urinary tract infection, aneurysm and although unlikely based on the history and physical exam, I also considered dissection, ischemic bowel, obstruction, volvulus, trauma. I discussed these differential diagnoses and the plan with the patient as well as the usual and expected course. The patient understands that the diagnosis is provisional and that in medicine we are not always correct and that further workup is often warranted. Usual and customary warnings were given. All of the patient's questions were answered. The patient was instructed to return to the emergency department should the symptoms at all worsen or return, otherwise to followup with the physician as we discussed. (Jorge Souza) - Data Points Laboratory Results: Laboratory Results 07/21/17 12:22 07/21/17 12:22 07/21/17 07/21/17 07/21/17 15:14 14:20 12:22 WBC RBC Hgb Hct MCV MCH MCHC RDW Plt Count MPV Neut % (Auto) Lymph % (Auto) Sampson % (Auto) Eos % (Auto) Baso % (Auto) Nucleat RBC Rel Count Absolute Neuts (auto) Absolute Lymphs (auto) Absolute Monos (auto) Absolute Eos (auto) Absolute Basos (auto) Absolute Nucleated RBC Immature Gran % Immature Gran # Sodium 140 mEq/L mEq/L (134-144) Potassium 4.5 mEq/L mEq/L (3.5-5.2) Chloride 103 mEq/L mEq/L (97-110) Carbon Dioxide 23 mEq/l mEq/l (22-31) Anion Gap 14 mEq/L mEq/L (8-16) BUN 22 mg/dL mg/dL (7-23) Creatinine 1.0 mg/dL mg/dL (0.7-1.3) Estimated GFR > 60 Glucose 132 mg/dL H mg/dL (70-100) Calcium 10.3 mg/dL mg/dL (8.5-10.4) Troponin I < 0.012 ng/mL ng/mL (0.000-0.034) Lipase 98 IU/L IU/L (23-300) Urine Color YELLOW Urine Appearance CLEAR Urine pH 6.0 (5.0-7.5) Ur Specific [place] 1.017 (1.002-1.030) Urine Protein NEGATIVE (NEGATIVE) Urine Ketones 1+ H (NEGATIVE) Urine Blood NEGATIVE (NEGATIVE) Urine Nitrate NEGATIVE (NEGATIVE) Urine Bilirubin NEGATIVE (NEGATIVE) Urine Urobilinogen NEGATIVE EU EU (0.2-1.0) Ur Leukocyte Esterase NEGATIVE (NEGATIVE) Urine RBC 1-3 /hpf /hpf (0-3) Urine WBC 1-3 /hpf /hpf (0-3) Ur Epithelial Cells TRACE /lpf /lpf (NONE-1+) Urine Mucus TRACE /lpf /lpf (NONE-1+) Urine Glucose NEGATIVE (NEGATIVE) 07/21/17 12:22 WBC 9.87 10^3/uL H 10^3/uL (3.80-9.50) RBC 5.37 10^6/uL 10^6/uL (4.40-6.38) Hgb 17.9 g/dL H g/dL (13.7-17.5) Hct 49.6 % % (40.0-51.0) MCV 92.4 fL fL (81.5-99.8) MCH 33.3 pg pg (27.9-34.1) MCHC 36.1 g/dL g/dL (32.4-36.7) RDW 12.7 % % (11.5-15.2) Plt Count 268 10^3/uL 10^3/uL (150-400) MPV 11.2 fL fL (8.7-11.7) Neut % (Auto) 86.5 % H % (39.3-74.2) Lymph % (Auto) 9.9 % L % (15.0-45.0) Sampson % (Auto) 2.6 % L % (4.5-13.0) Eos % (Auto) 0.0 % L % (0.6-7.6) Baso % (Auto) 0.4 % % (0.3-1.7) Nucleat RBC Rel Count 0.0 % % (0.0-0.2) Absolute Neuts (auto) 8.53 10^3/uL H 10^3/uL (1.70-6.50) Absolute Lymphs (auto) 0.98 10^3/uL L 10^3/uL (1.00-3.00) Absolute Monos (auto) 0.26 10^3/uL L 10^3/uL (0.30-0.80) Absolute Eos (auto) 0.00 10^3/uL L 10^3/uL (0.03-0.40) Absolute Basos (auto) 0.04 10^3/uL 10^3/uL (0.02-0.10) Absolute Nucleated RBC 0.00 10^3/uL 10^3/uL (0-0.01) Immature Gran % 0.6 % % (0.0-1.1) Immature Gran # 0.06 10^3/uL 10^3/uL (0.00-0.10) Sodium Potassium Chloride Carbon Dioxide Anion Gap BUN Creatinine Estimated GFR Glucose Calcium Troponin I Lipase Urine Color Urine Appearance Urine pH Ur Specific [place] Urine Protein Urine Ketones Urine Blood Urine Nitrate Urine Bilirubin Urine Urobilinogen Ur Leukocyte Esterase Urine RBC Urine WBC Ur Epithelial Cells Urine Mucus Urine Glucose Medications Given: Discontinued Medications Hydromorphone HCl (Dilaudid) 0.5 mg IVP EDNOW ONE Stop: 07/21/17 14:10 Last Admin: 07/21/17 14:17 Dose: 0.5 mg Sodium Chloride (Ns) 1,000 mls @ 0 mls/hr IV EDNOW ONE; Wide Open PRN Reason: Protocol Stop: 07/21/17 13:00 Last Admin: 07/21/17 13:03 Dose: 1,000 mls Ketorolac Tromethamine (Toradol) 30 mg IVP EDNOW ONE Stop: 07/21/17 16:06 Last Admin: 07/21/17 16:15 Dose: 30 mg Morphine Sulfate (Morphine) 6 mg IVP EDNOW ONE Stop: 07/21/17 12:32 Last Admin: 07/21/17 12:37 Dose: 6 mg Ondansetron HCl (Zofran) 4 mg IVP EDNOW ONE Stop: 07/21/17 12:33 Last Admin: 07/21/17 12:37 Dose: 4 mg Departure - Departure Disposition: Home, Routine, Self-Care Clinical Impression: Abdominal pain Qualifiers: Abdominal location: lower abdomen, unspecified Qualified Code(s): R10.30 - Lower abdominal pain, unspecified Condition: Fair Instructions: Abdominal Pain (ED) Referrals: Fortunato Neely MD [Primary Care Provider] - As per Instructions Prescriptions: Ketorolac Tromethamine [Toradol] 10 mg PO Q6H #10 tab
[2017-07-21] MEDS ORDERED: NS 1,000 ML IV ONE (12:59)
[2017-07-21 13:05] LABS: % IMMATURE GRANULYOCYTES 0.6 % (0.0-1.1); ABSOLUTE IMMATURE GRANULOCYTES 0.06 10^3/uL (0.00-0.10); ADD DIFF? NO; ADD MORPH? NO; ADD SCAN? NO; ATYPICAL LYMPHOCYTE FLAG 0 (0-99); FRAGMENT RBC FLAG 0 (0-99); HEMATOCRIT 49.6 % (40.0-51.0); HEMOGLOBIN 17.9 g/dL (13.7-17.5); LEFT SHIFT FLG 0 (0-99); LIPEMIA HEMOLYSIS FLAG 90 (0-99); MEAN CELL HEMOGLOBIN 33.3 pg (27.9-34.1); MEAN CELL HEMOGLOBIN CONCENTR. 36.1 g/dL (32.4-36.7); MEAN CELL VOLUME 92.4 fL (81.5-99.8); MEAN PLATELET VOLUME 11.2 fL (8.7-11.7); PLATELET CLUMPS FLAG 10 (0-99); PLATELET COUNT 268 10^3/uL (150-400); RED BLOOD CELL COUNT 5.37 10^6/uL (4.40-6.38); RED CELL DISTRIBUTION WIDTH 12.7 % (11.5-15.2)
[2017-07-21 13:14] LABS: ANION GAP 14 mEq/L (8-16); CALCIUM 10.3 mg/dL (8.5-10.4); CARBON DIOXIDE 23 mEq/l (22-31); CHLORIDE 103 mEq/L (97-110); GLOMERULAR FILTRATION RATE > 60; GLUCOSE 132 mg/dL (70-100); POTASSIUM 4.5 mEq/L (3.5-5.2); SODIUM 140 mEq/L (134-144)
[2017-07-21] MEDS ORDERED: HYDROmorphONE/DILAUDID 1 MG/ML INJ IVP ONE (14:09)
[2017-07-21 14:34] VITALS: TEMP 97.2
[2017-07-21] MEDS ORDERED: IOPAMIDOL (ISOVUE-300) 100 ML BTL ONE (14:44)
[2017-07-21 15:30] LABS: COLOR YELLOW; LEUKOCYTE ESTERASE,URINE NEGATIVE (NEGATIVE); NITRITE,URINE NEGATIVE (NEGATIVE)
[2017-07-21 15:32] LABS: MUCUS TRACE /lpf (NONE-1+)
--- NOTE | 2017-07-21 16:00 | CPEKG ---
Heart Rate: 64 RR Interval: 938 P-R Interval: 200 QRSD Interval: 84 QT Interval: 388 QTC Interval: 401 P [place]: 45 QRS [place]: 3 T Wave [place]: 71 EKG Severity - NORMAL ECG - EKG Impression: SINUS RHYTHM EKG Impression: improved compared to previous better baseline Electronically Signed By: Jorge Souza 21-Jul-2017 16:11:10
[2017-07-21] MEDS ORDERED: KETOROLAC 30 MG/1 ML SDV IVP ONE (16:05)
[2017-07-21 16:27] VITALS: BP 116/80; PULSE 82; RESP 16; O2SAT 98
== END 2017-07-21 16:27 | disposition home or self-care (01) ==
DX: R10.30 Lower abdominal pain, unspecified (principal); E86.9 Volume depletion, unspecified; Z79.82 Long term (current) use of aspirin; Z87.891 Personal history of nicotine dependence
CPT/HCPCS: 96374; J1170; J1885; J2405; Q9967

== ENCOUNTER 2018-01-06 12:26 | Emergency (ER) | payer OTHER ==
[2018-01-06] MEDS ORDERED: KETOROLAC 30 MG/1 ML SDV IVP ONE (12:54)
[2018-01-06] MEDS ORDERED: ONDANSETRON 4 MG/2 ML VIAL IVP ONE (12:55)
[2018-01-06] MEDS ORDERED: NS 1,000 ML IV ONE ×2 (12:57→13:25)
--- NOTE | 2018-01-06 13:25 | EDPHY ---
H & P Time Seen by Provider: 01/06/18 13:00 HPI/ROS: Chief complaint. Abdominal pain HPI. 52-year-old male presents emergency department with generalized abdominal pain that began about 130 this morning. Vomited and had loose till stool but he says it was not diarrhea type stool. No blood. The pain is generalized in the abdomen especially around the level of the umbilicus and on both sides. No radiation to back. Described as crampy. No change in his discomfort with position or eating. He was sweating last night. Unsure whether had a fever. He denies any chest discomfort shortness of breath. He return from [place] 1 week ago. Denies eating at food Stalls or on the street. He had similar episode about 4-5 months ago that resolved. ROS Constitutional. Possible fever Eyes. no problems with vision ENT. no sore throat, no nasal drainage Cardiovascular. no chest pain Respiratory. no shortness of breath, no cough Abdominal. Generalized abdominal pain with nausea vomiting and loose stool . no problems urinating MS. no calf pain/swelling, no neck/back pain, no joint pain Skin. no rash Lymph. no swollen glands Neuro. 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 ENT, Mouth: Mucous membranes are moist. Respiratory: There are no retractions, lungs are clear to auscultation. Cardiovascular: Regular rate and rhythm. Gastrointestinal: Abdomen is soft and diffusely tender. No particular tenderness at McBurney's point. Normal bowel sounds. No masses Neurological: Awake and alert, sensory and motor exams grossly normal. Skin: Warm and dry, no rashes. Musculoskeletal: Neck is supple nontender. Extremities symmetrical, full range of motion. Psychiatric: Patient is oriented X 3, there is no agitation. Constitutional: Initial Vital Signs Temperature (C) 37 C 01/06/18 12:34 Heart Rate 58 L 01/06/18 12:34 Respiratory Rate 19 01/06/18 12:34 Blood Pressure 158/90 H 01/06/18 12:34 O2 Sat (%) 95 01/06/18 12:34 O2 Delivery Mode Room Air Allergies/Adverse Reactions: No Known Allergies Allergy (Verified 01/06/18 12:34) Home Medications: Medication Instructions Recorded Aspirin [Aspirin 81mg (*)] 81 mg PO DAILY 03/17/17 Avanafil [Stendra] 100 mg PO DAILY PRN 03/17/17 buPROPion SR [Wellbutrin 150mg SR 150 mg PO BID 03/17/17 (*)] Ketorolac Tromethamine [Toradol] 10 mg PO Q6H #10 tab 07/21/17 Lexapro 07/21/17 Hydrocodone/APAP 5/325 [[place] 1 each PO Q4-6PRN PRN #10 tab 01/06/18 5/325 (*)] levOFLOXACIN [levAQUIN (*)] 750 mg PO DAILY #7 tab 01/06/18 metroNIDAZOLE [Flagyl 500 mg (*)] 500 mg PO QID #28 tab 01/06/18 Medical Decision Making - Diagnostics EKG Interpretation: EKG interpreted by me shows normal sinus rate or mole in all and axis. QRS is normal there is no significant ST elevation or depression. There is a some possible T-wave abnormalities in flattening laterally. No arrhythmia. The rate is 65 Imaging Results: Imaging Impressions Abdomen CT 01/06/18 13:25 Impression: 1. 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 2. No CT evidence of appendicitis, abscess or bowel obstruction. 3. Degenerative lumbar spine. 4. Sigmoid diverticulosis without diverticulitis or bowel obstruction. Findings and recommendations discussed with Emergency Department physician, Dr. Jb Pastor, at 1440 hours on January 06, 2018. Final report concurs with initial preliminary interpretation. CT abdomen pelvis with IV contrast shows chronic UPJ dilation. Similar symptoms previously. No evidence for appendicitis, diverticulitis Procedures: IV normal saline. Patient is given Toradol and Zofran. Patient told the nurse that Toradol 0 really improved his symptoms last time and so this was given prior to my seeing him. ED Course/Re-evaluation: Re-evaluation at 3:05 p.m.. Patient would like pain medication for his abdominal pain. Patient and I discussed imaging and lab results. We discussed treatment plan including recommendation for admission for worsened nominal pain. He expresses understanding and agreement Re-evaluation 4:00 p.m.-- Stable Re-evaluation again at 6:30 p.m.. Patient is stable. Patient, his , and I discussed imaging and lab results. We discussed treatment plan including criteria for return importance of follow-up and further evaluation I consulted and discussed case Dr. Neely patient's regular physician who would like us to treat him for diverticulitis and he will see him in the office tomorrow or the next day. Patient is agree to this plan Differential Diagnosis: I have considered diverticulitis, appendicitis, urinary tract infection, bowel obstruction - Data Points Laboratory Results: Laboratory Results 01/06/18 12:45 01/06/18 12:45 01/06/18 01/06/18 01/06/18 16:00 12:45 12:45 WBC 10.76 10^3/uL H 10^3/uL (3.80-9.50) RBC 5.35 10^6/uL 10^6/uL (4.40-6.38) Hgb 17.6 g/dL H g/dL (13.7-17.5) Hct 51.1 % H % (40.0-51.0) MCV 95.5 fL fL (81.5-99.8) MCH 32.9 pg pg (27.9-34.1) MCHC 34.4 g/dL g/dL (32.4-36.7) RDW 13.0 % % (11.5-15.2) Plt Count 284 10^3/uL 10^3/uL (150-400) MPV 11.2 fL fL (8.7-11.7) Neut % (Auto) 86.1 % H % (39.3-74.2) Lymph % (Auto) 9.9 % L % (15.0-45.0) [place] % (Auto) 2.7 % L % (4.5-13.0) Eos % (Auto) 0.4 % L % (0.6-7.6) Baso % (Auto) 0.3 % % (0.3-1.7) Nucleat RBC Rel Count 0.0 % % (0.0-0.2) Absolute Neuts (auto) 9.28 10^3/uL H 10^3/uL (1.70-6.50) Absolute Lymphs (auto) 1.06 10^3/uL 10^3/uL (1.00-3.00) Absolute Monos (auto) 0.29 10^3/uL L 10^3/uL (0.30-0.80) Absolute Eos (auto) 0.04 10^3/uL 10^3/uL (0.03-0.40) Absolute Basos (auto) 0.03 10^3/uL 10^3/uL (0.02-0.10) Absolute Nucleated RBC 0.00 10^3/uL 10^3/uL (0-0.01) Immature Gran % 0.6 % % (0.0-1.1) Immature Gran # 0.06 10^3/uL 10^3/uL (0.00-0.10) Sodium 141 mEq/L mEq/L (135-145) Potassium 4.5 mEq/L mEq/L (3.5-5.2) Chloride 100 mEq/L mEq/L (97-110) Carbon Dioxide 28 mEq/l mEq/l (22-31) Anion Gap 13 mEq/L mEq/L (8-16) BUN 23 mg/dL mg/dL (7-23) Creatinine 1.0 mg/dL mg/dL (0.7-1.3) Estimated GFR > 60 Glucose 124 mg/dL H mg/dL (70-100) Calcium 9.8 mg/dL mg/dL (8.5-10.4) Total Bilirubin 0.9 mg/dL mg/dL (0.1-1.4) Conjugated Bilirubin 0.3 mg/dL mg/dL (0.0-0.5) Unconjugated Bilirubin 0.6 mg/dL mg/dL (0.0-1.1) AST 54 IU/L IU/L (17-59) ALT 78 IU/L H IU/L (21-72) Alkaline Phosphatase 64 IU/L IU/L (38-126) Troponin I < 0.012 ng/mL ng/mL (0.000-0.034) Total Protein 8.3 g/dL H g/dL (6.3-8.2) Albumin 4.9 g/dL g/dL (3.5-5.0) Lipase 139 IU/L IU/L (23-300) Urine Color YELLOW Urine Appearance MODERATELY TURBID Urine pH 8.0 H (5.0-7.5) Ur Specific [place] 1.034 H (1.002-1.030) Urine Protein NEGATIVE (NEGATIVE) Urine Ketones NEGATIVE (NEGATIVE) Urine Blood NEGATIVE (NEGATIVE) Urine Nitrate NEGATIVE (NEGATIVE) Urine Bilirubin NEGATIVE (NEGATIVE) Urine Urobilinogen NEGATIVE EU EU (0.2-1.0) Ur Leukocyte Esterase NEGATIVE (NEGATIVE) Urine RBC 5-10 /hpf H /hpf (0-3) Urine WBC 0-1 /hpf /hpf (0-3) Ur Epithelial Cells NONE SEEN /lpf /lpf (NONE-1+) Amorphous Sediment PRESENT /hpf /hpf (NONE-1+) Urine Glucose NEGATIVE (NEGATIVE) Medications Given: Discontinued Medications Hydromorphone HCl (Dilaudid) 0.5 mg IVP EDNOW ONE Stop: 01/06/18 15:14 Last Admin: 01/06/18 16:06 Dose: 0.5 mg Sodium Chloride (Ns) 1,000 mls @ 0 mls/hr IV ONCE ONE; Wide Open PRN Reason: Protocol Stop: 01/06/18 12:58 Last Admin: 01/06/18 13:03 Dose: 1,000 mls Sodium Chloride (Ns) 1,000 mls @ 0 mls/hr IV EDNOW ONE; Wide Open PRN Reason: Protocol Stop: 01/06/18 13:26 Last Admin: 01/06/18 14:40 Dose: 1,000 mls Ketorolac Tromethamine (Toradol) 30 mg IVP EDNOW ONE Stop: 01/06/18 12:55 Last Admin: 01/06/18 13:03 Dose: 30 mg Ondansetron HCl (Zofran) 4 mg IVP EDNOW ONE Stop: 01/06/18 12:56 Last Admin: 01/06/18 13:03 Dose: 4 mg Departure - Departure Disposition: Home, Routine, Self-Care Clinical Impression: Diverticulitis Condition: Good Instructions: Diverticulitis (ED) Additional Instructions: Drink plenty fluids stay hydrated. Levaquin and Flagyl as antibiotic. Do not drink alcohol while taking the antibiotics. Return for worsening pain, fever, vomiting. Follow up with Dr. Neely in 1-2 days without fail Referrals: Fortunato Neely MD [Primary Care Provider] - 1-2 days without fail Prescriptions: Hydrocodone/APAP 5/325 [[place] 5/325 (*)] 1 each PO Q4-6PRN PRN #10 tab PRN Reason: Pain, Moderate levOFLOXACIN [levAQUIN (*)] 750 mg PO DAILY #7 tab metroNIDAZOLE [Flagyl 500 mg (*)] 500 mg PO QID #28 tab
[2018-01-06 13:32] LABS: PLATELET COUNT 284 10^3/uL (150-400)
[2018-01-06] MEDS ORDERED: IOPAMIDOL (ISOVUE-300) 100 ML BTL ONE (14:06)
[2018-01-06] MEDS ORDERED: HYDROmorphONE/DILAUDID 2 MG/ML INJ IVP ONE (15:13)
--- NOTE | 2018-01-06 15:18 | CPEKG ---
Heart Rate: 65 RR Interval: 923 P-R Interval: 200 QRSD Interval: 82 QT Interval: 392 QTC Interval: 408 P [place]: 47 QRS [place]: 12 T Wave [place]: 74 EKG Severity - BORDERLINE ECG - EKG Impression: SINUS RHYTHM EKG Impression: BORDERLINE T ABNORMALITIES, ANT-LAT LEADS Electronically Signed By: Jb Pastor 06-Jan-2018 21:07:00
[2018-01-06 19:21] VITALS: BP 116/71; PULSE 72; RESP 18; TEMP 98.2; O2SAT 96
== END 2018-01-06 19:10 | disposition home or self-care (01) ==
DX: K57.92 Diverticulitis of intestine, part unspecified, without perforation or abscess without bleeding (principal); E86.9 Volume depletion, unspecified; Z87.891 Personal history of nicotine dependence; Z79.82 Long term (current) use of aspirin
CPT/HCPCS: 96374; J1170; J1885; J2405; Q9967

== ENCOUNTER 2018-07-27 09:47 | Emergency (ER) | payer OTHER ==
[2018-07-27] MEDS ORDERED: PANTOPRAZOLE SODIUM 40 MG VIAL IVP ONE (10:00)
[2018-07-27] MEDS ORDERED: fentaNYL 100 MCG/2 ML INJ IVP ONE (10:00)
[2018-07-27] MEDS ORDERED: NS 1,000 ML IV ONE (10:00)
--- NOTE | 2018-07-27 10:00 | EDPHY ---
General Time Seen by Provider: 07/27/18 09:55 Narrative: CHIEF COMPLAINT: Abdominal pain HISTORY OF PRESENT ILLNESS: Patient presents by private vehicle with complaint of abdominal pain. Epigastric abdominal pain is rated as severe. It started abruptly between 3:30 a.m. And 4:00 a.m. Sudden onset. Constant duration. Associated with vomiting and ongoing nausea. Also associated with difficulty taking a deep breath due to pain. No chest pain or shortness of breath. No fever. Some chills. Decreased appetite. Pain is worse palpation and movement. Minimal improvement rest. Feels the same as when he was diagnosed with pancreatitis or earlier this year. Denies any heavy alcohol use. Did notice "some sort of pancreas narrowing," diagnosis during his previous hospitalization in January. He denies any urinary complaints. No other associated complaints or modifying factors REVIEW OF SYSTEMS: 10 systems were reviewed and negative with the exception of the elements mentioned in the history of present illness. PCP: Dr. Fortunato Neely SPECIALISTS: [facility] PAST MEDICAL HISTORY: Pancreatitis, osteoarthritis, right kidney congenital defect PAST SURGICAL HISTORY: Ureteral stents. No other abdominal surgeries SOCIAL HISTORY: Nonsmoker. Occasional alcohol use. Denies heavy alcohol use. 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 Conversing in complete sentences with some dry heaving. Nontoxic. Does appear to be in discomfort but in no acute distress Head: normocephalic, atraumatic Eyes: Pupils equal and round, no conjunctival pallor or injection ENT, Mouth: Mucous membranes moist Neck: Normal inspection, supple, non-tender Respiratory: Lungs are clear to auscultation Cardiovascular: Regular rate and rhythm Gastrointestinal: Abdomen is soft and nondistended. There is moderate tenderness in the epigastrium. No rigidity. No tympany. Bowel sounds are present. No palpable mass. No CVA tenderness Back: non-tender, no bony abnormalities Neurological: A&O, nonfocal, normal gait Skin: Warm and dry, no rash Extremities: Nontender, no pedal edema Psychiatric: Mood and affect normal DIFFERENTIAL DIAGNOSES: Including but not limited to pancreatitis, gastritis, peptic ulcer disease, gastro enteritis, duodenitis, perforated viscus, colitis, mesenteric adenitis, cholecystitis, cholelithiasis MDM: 9:55 a.m. Moderate to severe epigastric abdominal pain with moderate tenderness with active dry heaving in the room. Patient does have history of pancreatitis, non alcoholic related. He does appear to be in moderate discomfort but has a non surgical exam at this time. I have ordered CT scan abdomen pelvis.. IV will be placed and laboratory studies are pending. We have ordered medications including fluid, nausea medication, pain medication and Protonix. Vital signs are within normal limits. He does not meet SIRS criteria. 10:45 a.m. Laboratory studies thus far are unremarkable. CT scan pending. 12:15 p.[address] Not[address] by Radiology. CT scan abdomen pelvis reveals no acute epigastric abnormalities. There is notation of cystic/loculated fluid change in the left acetabulum as documented. This has seemingly increased since prior imaging. Recommend clinical correlation follow-up. 12:30 p.m. Patient re-evaluated. He states he is feeling much better than time of arrival. I discussed the imaging findings and he has no left hip pain or pain with ambulating. He has no night sweats, fever weight loss. We discussed GI cocktail as I suspect he likely has gastritis. He is amenable to this. He remains well-appearing, no acute distress with vital signs stable. 1:20 p.m. Patient re-evaluated. He is feeling significantly better after the GI cocktail. He has no pain. No chest pain or shortness of breath. He has been tolerating liquid intake by mouth out difficulty. We discussed discharge home with continuation of his ranitidine. We discussed short course of Carafate. We discussed contacting his established GI physician and primary care physician. We discussed ED precautions for any worsening symptoms, fever, chest pain or shortness of breath or intolerance of intake by mouth. He is comfortable this plan. He is discharged home stable condition. SUPERVISION: Patient was independently examined, but I discussed the case with my secondary supervising physician Dr. Matias CONSULTATION: None. GI referral - Diagnostics Imaging Results: Imaging Impressions Abdomen CT 07/27/18 10:02 Impression: 1. Indeterminant loculated collection along the superior posterior margin of the acetabulum on the left within the gluteus minimus muscle. This could represent a ganglion cyst, lymphangioma, or myxoma. Muscle tumor such as synovial sarcoma is felt to be less likely. 2. No CT evidence of pancreatitis, appendicitis, abscess or bowel obstruction. 3. Chronic UPJ obstruction on the right. 4. Stable degenerative disk disease mid to lower lumbar spine with mild levoscoliosis. Findings discussed with Jerad Gutierrez PAC at 11:49 hour, 07/27/2018. - History Smoking Status: Never smoked - Objective Vital Signs: Initial Vital Signs Temperature (C) 97.5 F 07/27/18 09:48 Heart Rate 45 L 07/27/18 09:48 Respiratory Rate 18 07/27/18 09:48 Blood Pressure 148/86 H 07/27/18 09:48 O2 Sat (%) 97 07/27/18 09:48 O2 Delivery Mode Room Air O2 (L/minute) 1 Allergies/Adverse Reactions: No Known Allergies Allergy (Verified 07/27/18 09:48) Home Medications: Medication Instructions Recorded Aspirin [Aspirin 81mg (*)] 81 mg PO DAILY 03/17/17 Avanafil [Stendra] 100 mg PO DAILY PRN 03/17/17 buPROPion SR [Wellbutrin 150mg SR 300 mg PO DAILY 03/17/17 (*)] Escitalopram Oxalate [Lexapro] 5 mg PO DAILY 07/21/17 Hydrocodone/APAP 5/325 [[place] 1 each PO Q4-6PRN PRN #10 tab 01/06/18 5/325 (*)] Ketorolac Tromethamine [Toradol] 10 mg PO Q6H PRN 01/07/18 Acetaminophen [Tylenol 325mg (*)] 650 mg PO Q4HRS PRN tab 01/09/18 Famotidine [Pepcid 20 MG (*)] 20 mg PO HS #30 tab 01/09/18 Pantoprazole Sodium [Protonix 40mg 40 mg PO DAILY #30 tab 01/09/18 (*)] Promethazine HCl [Phenergan 25mg 25 mg PO Q8 PRN #12 tab 07/27/18 (*)] Sucralfate [Carafate Oral Liquid 10 ml PO QID PRN #240 ml 07/27/18 100 mg/ml] Laboratory Results: Laboratory Results 07/27/18 09:58 07/27/18 09:58 07/27/18 07/27/18 07/27/18 12:30 10:04 09:58 WBC RBC Hgb POC Hgb 16.7 gm/dL gm/dL (13.7-17.5) Hct POC Hct 49 % % (40-51) MCV MCH MCHC RDW Plt Count MPV Neut % (Auto) Lymph % (Auto) [place] % (Auto) Eos % (Auto) Baso % (Auto) Nucleat RBC Rel Count Absolute Neuts (auto) Absolute Lymphs (auto) Absolute Monos (auto) Absolute Eos (auto) Absolute Basos (auto) Absolute Nucleated RBC Immature Gran % Immature Gran # POC Sodium 140 mEq/L mEq/L (135-145) Sodium 138 mEq/L mEq/L (135-145) POC Potassium 4.2 mEq/L mEq/L (3.3-5.0) Potassium 4.6 mEq/L mEq/L (3.3-5.0) POC Chloride 105 mEq/L mEq/L (97-110) Chloride 103 mEq/L mEq/L (97-110) Carbon Dioxide 25 mEq/l mEq/l (22-31) Anion Gap 10 mEq/L mEq/L (6-14) POC BUN 20 mg/dL mg/dL (7-23) BUN 19 mg/dL mg/dL (7-23) Creatinine 0.9 mg/dL mg/dL (0.7-1.3) POC Creatinine 1.0 mg/dL mg/dL (0.7-1.3) Estimated GFR > 60 Glucose 125 mg/dL H mg/dL (70-100) POC Glucose 127 mg/dL H mg/dL (70-100) Calcium 9.6 mg/dL mg/dL (8.5-10.4) Total Bilirubin 0.4 mg/dL mg/dL (0.1-1.4) Conjugated Bilirubin 0.2 mg/dL mg/dL (0.0-0.5) Unconjugated Bilirubin 0.2 mg/dL mg/dL (0.0-1.1) AST 69 IU/L H IU/L (17-59) ALT 57 IU/L IU/L (21-72) Alkaline Phosphatase 58 IU/L IU/L (38-126) Total Protein 7.3 g/dL g/dL (6.3-8.2) Albumin 4.4 g/dL g/dL (3.5-5.0) Lipase 298 IU/L IU/L (23-300) Urine Color PALE YELLOW Urine Appearance HAZY Urine pH 6.0 (5.0-7.5) Ur Specific [place] 1.020 (1.002-1.030) Urine Protein NEGATIVE (NEGATIVE) Urine Ketones NEGATIVE (NEGATIVE) Urine Blood NEGATIVE (NEGATIVE) Urine Nitrate NEGATIVE (NEGATIVE) Urine Bilirubin NEGATIVE (NEGATIVE) Urine Urobilinogen NEGATIVE EU EU (0.2-1.0) Ur Leukocyte Esterase NEGATIVE (NEGATIVE) Urine RBC NONE SEEN /hpf /hpf (0-3) Urine WBC 0-1 /hpf /hpf (0-3) Ur Epithelial Cells NONE SEEN /lpf /lpf (NONE-1+) Urine Mucus TRACE /lpf /lpf (NONE-1+) Urine Glucose NEGATIVE (NEGATIVE) Ethyl Alcohol < 10 mg/dL mg/dL (0-10) 07/27/18 09:58 WBC 11.48 10^3/uL H 10^3/uL (3.80-9.50) RBC 4.96 10^6/uL 10^6/uL (4.40-6.38) Hgb 16.4 g/dL g/dL (13.7-17.5) POC Hgb Hct 47.0 % % (40.0-51.0) POC Hct MCV 94.8 fL fL (81.5-99.8) MCH 33.1 pg pg (27.9-34.1) MCHC 34.9 g/dL g/dL (32.4-36.7) RDW 12.9 % % (11.5-15.2) Plt Count 297 10^3/uL 10^3/uL (150-400) MPV 10.7 fL fL (8.7-11.7) Neut % (Auto) 77.9 % H % (39.3-74.2) Lymph % (Auto) 15.6 % % (15.0-45.0) [place] % (Auto) 5.2 % % (4.5-13.0) Eos % (Auto) 0.3 % L % (0.6-7.6) Baso % (Auto) 0.5 % % (0.3-1.7) Nucleat RBC Rel Count 0.0 % % (0.0-0.2) Absolute Neuts (auto) 8.93 10^3/uL H 10^3/uL (1.70-6.50) Absolute Lymphs (auto) 1.79 10^3/uL 10^3/uL (1.00-3.00) Absolute Monos (auto) 0.60 10^3/uL 10^3/uL (0.30-0.80) Absolute Eos (auto) 0.04 10^3/uL 10^3/uL (0.03-0.40) Absolute Basos (auto) 0.06 10^3/uL 10^3/uL (0.02-0.10) Absolute Nucleated RBC 0.00 10^3/uL 10^3/uL (0-0.01) Immature Gran % 0.5 % % (0.0-1.1) Immature Gran # 0.06 10^3/uL 10^3/uL (0.00-0.10) POC Sodium Sodium POC Potassium Potassium POC Chloride Chloride Carbon Dioxide Anion Gap POC BUN BUN Creatinine POC Creatinine Estimated GFR Glucose POC Glucose Calcium Total Bilirubin Conjugated Bilirubin Unconjugated Bilirubin AST ALT Alkaline Phosphatase Total Protein Albumin Lipase Urine Color Urine Appearance Urine pH Ur Specific [place] Urine Protein Urine Ketones Urine Blood Urine Nitrate Urine Bilirubin Urine Urobilinogen Ur Leukocyte Esterase Urine RBC Urine WBC Ur Epithelial Cells Urine Mucus Urine Glucose Ethyl Alcohol Medications Given: Discontinued Medications Al Hydroxide/Mg Hydroxide (Maalox Susp) 30 ml PO ONCE ONE Stop: 07/27/18 12:39 Last Admin: 07/27/18 12:52 Dose: 30 ml Fentanyl (Sublimaze) 100 mcg IVP EDNOW ONE Stop: 07/27/18 10:01 Last Admin: 07/27/18 10:06 Dose: 100 mcg Hyoscyamine Sulfate (Levsin, Hyomax-Sl) 0.25 mg PO ONCE ONE Stop: 07/27/18 12:39 Last Admin: 07/27/18 12:52 Dose: 0.25 mg Sodium Chloride (Ns) 1,000 mls @ 0 mls/hr IV EDNOW ONE; Wide Open PRN Reason: Protocol Stop: 07/27/18 10:01 Last Admin: 07/27/18 10:11 Dose: 1,000 mls Lidocaine (Lidocaine 2% Viscous) 15 ml PO ONCE ONE Stop: 07/27/18 12:39 Last Admin: 07/27/18 12:53 Dose: 15 ml Pantoprazole Sodium (Protonix) 40 mg IVP EDNOW ONE Stop: 10/22/18 10:01 Last Admin: 07/27/18 10:11 Dose: 40 mg Promethazine HCl (Phenergan) 12.5 mg IVP ONCE ONE Stop: 07/27/18 10:02 Last Admin: 07/27/18 10:06 Dose: 12.5 mg Point of Care Test Results: Chemistry 07/27/18 10:04 POC Sodium 140 mEq/L mEq/L (135-145) POC Potassium 4.2 mEq/L mEq/L (3.3-5.0) POC Chloride 105 mEq/L mEq/L (97-110) POC BUN 20 mg/dL mg/dL (7-23) POC Creatinine 1.0 mg/dL mg/dL (0.7-1.3) POC Glucose 127 mg/dL H mg/dL (70-100) ISTAT H&H 07/27/18 10:04 POC Hgb 16.7 gm/dL gm/dL (13.7-17.5) POC Hct 49 % % (40-51) Departure - Departure Disposition: Home, Routine, Self-Care Clinical Impression: Epigastric pain Gastritis Qualifiers: Gastritis type: unspecified gastritis Chronicity: acute Gastritis bleeding: without bleeding Qualified Code(s): K29.00 - Acute gastritis without bleeding Condition: Good Instructions: Gastritis (ED), Clear Liquid Diet (ED), Epigastric Pain (ED) Additional Instructions: 1. Clear liquid diet as discussed. Advance slowly as tolerated 2. Nausea medication as prescribed as needed 3. Carafate as prescribed as needed for epigastric discomfort 4. Contact your established GI and primary care physicians 5. Return here for any worsening of symptoms at any time or if you do not have complete resolution within 24 hr Referrals: Fortunato Neely MD [Primary Care Provider] - As per Instructions Physician,Emergency DeptMD [Medical Doctor] - As per Instructions Stand Alone Forms: Work Excuse Prescriptions: Promethazine HCl [Phenergan 25mg (*)] 25 mg PO Q8 PRN #12 tab PRN Reason: Nausea/Vomiting, Use 1st Sucralfate [Carafate Oral Liquid 100 mg/ml] 10 ml PO QID PRN #240 ml PRN Reason: abdominal pain
[2018-07-27] MEDS ORDERED: PROMETHAZINE HCL 25 MG/ML INJ IVP ONE (10:01)
[2018-07-27 10:10] LABS: PLATELET COUNT 297 10^3/uL (150-400)
[2018-07-27] MEDS ORDERED: IOPAMIDOL (ISOVUE-300) 100 ML BTL ONE (10:29)
[2018-07-27] MEDS ORDERED: MAG HYDROX/AL HYDROX/SIMETH 30 ML UDCUP PO ONE (12:38)
[2018-07-27] MEDS ORDERED: LIDOCAINE 2% VISCOUS 15 ML UDCUP PO ONE (12:38)
[2018-07-27] MEDS ORDERED: HYOSCYAMINE SULFATE 0.125 MG TAB PO ONE (12:38)
[2018-07-27 13:45] VITALS: BP 118/79
== END 2018-07-27 13:52 | disposition home or self-care (01) ==
DX: K29.00 Acute gastritis without bleeding (principal); Q63.9 Congenital malformation of kidney, unspecified; E86.9 Volume depletion, unspecified
CPT/HCPCS: 82435-PO; 82565-PO; 82947-PO; 84132-PO; 84295-PO; 84520-PO; 85014-PO; 96374; G0480; J2550; J3010; Q9967

== ENCOUNTER 2019-01-04 08:11 | Inpatient (IN) | payer OTHER ==
[2019-01-04] MEDS ORDERED: ONDANSETRON 4 MG/2 ML VIAL IVP ONE ×2 (08:30→08:38)
[2019-01-04] MEDS ORDERED: NS 1,000 ML IV ONE (08:31)
[2019-01-04 08:54] LABS: PLATELET COUNT 264 10^3/uL (150-400)
[2019-01-04] MEDS ORDERED: LORazepam 2 MG/ML INJ IVP ONE (09:05)
[2019-01-04] MEDS ORDERED: PANTOPRAZOLE SODIUM 40 MG VIAL IVP ONE (09:08)
--- NOTE | 2019-01-04 09:08 | EDPHY ---
H & P Stated Complaint: ULQ abd pain, nausea vomiting Time Seen by Provider: 01/04/19 08:43 HPI/ROS: CHIEF COMPLAINT: Vomiting HISTORY OF PRESENT ILLNESS: 53-year-old male with history of gastritis and pancreatitis presents with vomiting. Onset vomiting at 5:00 a.m. Repeated episodes of vomiting, unable to tolerate oral fluids. Associated with mild epigastric discomfort. The pain is intermittent and occurs just before vomiting. History of prior similar symptoms, unsure if related to gastritis or pancreatitis. No fever or diarrhea. 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 - Social History Smoking Status: Never smoked Alcohol Use: Occasionally Drug Use: Marijuana (occasional THC use) - Physical Exam Exam: General Appearance: Alert, anxious, appears uncomfortable Eyes: Pupils equal and round, no conjunctival pallor ENT, Mouth: Mucous membranes moist Neck: Normal inspection Respiratory: Lungs are clear to auscultation Cardiovascular: Regular rate and rhythm Gastrointestinal: Abdomen is soft, mild epigastric tenderness Neurological: A&O, nonfocal exam Skin: Warm and dry Extremities: Normal inspection Psychiatric: Mood and affect normal Constitutional: Initial Vital Signs Temperature (C) 36.5 C 01/04/19 08:16 Heart Rate 47 L 01/04/19 08:16 Respiratory Rate 17 01/04/19 08:16 Blood Pressure 136/100 H 01/04/19 08:16 O2 Sat (%) 98 01/04/19 08:16 O2 Delivery Mode Room Air O2 (L/minute) 2 Allergies/Adverse Reactions: No Known Allergies Allergy (Verified 07/27/18 09:48) Home Medications: Medication Instructions Recorded Avanafil [Stendra] 100 mg PO DAILY PRN 03/17/17 buPROPion SR [Wellbutrin 150mg SR 300 mg PO DAILY 03/17/17 (*)] Acetaminophen [Tylenol 325mg (*)] 650 mg PO Q4HRS PRN tab 01/09/18 Pantoprazole Sodium [Protonix 40mg 40 mg PO DAILY #30 tab 01/09/18 (*)] Promethazine HCl [Phenergan 25mg 25 mg PO Q8 PRN #12 tab 07/27/18 (*)] Sucralfate [Carafate Oral Liquid 10 ml PO QID PRN #240 ml 07/27/18 100 mg/ml] Escitalopram Oxalate [Lexapro 10 10 mg PO DAILY 01/04/19 MG] Ketorolac Tromethamine 10 mg PO Q6H #30 tab 01/05/19 Ranitidine HCl [Zantac] 300 mg PO HS #0 01/05/19 Medical Decision Making ED Course/Re-evaluation: This patient presents with epigastric pain and vomiting. IV normal saline 1 L and Zofran 4 mg IV given. Continues to have recurrent episodes nausea and dry heaves. Ativan 1 mg IV given. Lipase elevated at 1007, c/w pancreatitis. Morphine 4 mg IV given. Results were discussed with the patient. Will admit for pancreatitis. Patient was stable throughout his emergency department stay. The hospitalist service was consulted for admission. Differential Diagnosis: Differential diagnosis includes though it is not limited to appendicitis, cholecystitis, diverticulitis, pyelonephritis, bowel perforation, small bowel obstruction. - Data Points Laboratory Results: Laboratory Results 01/04/19 08:30 01/04/19 08:30 Medications Given: Discontinued Medications Bupropion HCl (Wellbutrin Sr) 300 mg PO DAILY [facility] Stop: 07/04/19 08:59 Last Admin: 01/05/19 08:39 Dose: 300 mg Enoxaparin Sodium (Lovenox) 40 mg SC DAILY TASHI Stop: 07/04/19 08:59 Last Admin: 01/05/19 08:39 Dose: 40 mg Escitalopram Oxalate (Lexapro) 10 mg PO DAILY TASHI Stop: 07/04/19 08:59 Last Admin: 01/05/19 08:39 Dose: 10 mg Famotidine (Pepcid) 20 mg PO HS [facility] Stop: 07/03/19 20:59 Last Admin: 01/04/19 22:14 Dose: 20 mg Hydromorphone HCl (Dilaudid) 0.2 - 0.4 mg IVP Q4HRS PRN PRN Reason: Pain, Severe Unable to Take PO Stop: 01/14/19 09:47 Last Admin: 01/04/19 10:24 Dose: 0.4 mg Sodium Chloride (Ns) 1,000 mls @ 0 mls/hr IV EDNOW ONE; Wide Open PRN Reason: Protocol Stop: 01/04/19 08:32 Last Admin: 01/04/19 08:42 Dose: 1,000 mls Lactated Ringer's (Lr) 1,000 mls @ 150 mls/hr IV CONT TASHI Stop: 07/03/19 11:29 Last Admin: 01/05/19 04:24 Dose: 1,000 mls Ketorolac Tromethamine (Toradol) 15 mg IVP Q6HRS PRN PRN Reason: Pain, Breakthrough Stop: 01/09/19 17:59 Last Admin: 01/05/19 04:16 Dose: 15 mg Lorazepam (Ativan Injection) 1 mg IVP EDNOW ONE Stop: 01/04/19 09:06 Last Admin: 01/04/19 09:10 Dose: 1 mg Morphine Sulfate (Morphine) 4 mg IVP EDNOW ONE Stop: 01/04/19 09:43 Last Admin: 01/04/19 09:52 Dose: 4 mg Ondansetron HCl (Zofran) 4 mg IVP EDNOW ONE Stop: 01/04/19 08:39 Last Admin: 01/04/19 08:42 Dose: 4 mg Ondansetron HCl (Zofran) 4 mg IVP Q4HRS PRN PRN Reason: Nausea/Vomiting, Can't Take PO Stop: 07/03/19 09:47 Last Admin: 01/04/19 10:22 Dose: 4 mg Oxycodone HCl (Oxycodone Ir) 5 - 10 mg PO Q3HRS PRN PRN Reason: Pain, Severe Able to Take PO Stop: 01/14/19 09:47 Last Admin: 01/05/19 08:53 Dose: 5 mg Pantoprazole Sodium (Protonix) 40 mg IVP EDNOW ONE Stop: 01/04/19 09:09 Last Admin: 01/04/19 09:14 Dose: 40 mg Pantoprazole Sodium (Protonix) 40 mg PO DAILY TASHI Stop: 07/04/19 08:59 Last Admin: 01/05/19 08:39 Dose: 40 mg Departure - Departure Disposition: [facility] Acute Clinical Impression: Pancreatitis, acute Qualifiers: Pancreatitis type: unspecified pancreatitis type Acute pancreatitis complication: unspecified Qualified Code(s): K85.90 - Acute pancreatitis without necrosis or infection, unspecified Condition: Good
[2019-01-04] MEDS ORDERED: ONDANSETRON 4 MG/2 ML VIAL IVP PRN (09:48)
[2019-01-04] MEDS ORDERED: ACETAMINOPHEN 325 MG TAB PO PRN (09:48)
[2019-01-04] MEDS ORDERED: LORazepam 2 MG/ML INJ IVP PRN (09:48)
[2019-01-04] MEDS ORDERED: HYDROmorphONE/DILAUDID 1 MG/ML INJ IVP PRN (09:48)
[2019-01-04] MEDS ORDERED: ONDANSETRON DISINTEGRATING 4 MG TAB PO PRN (09:48)
[2019-01-04] MEDS ORDERED: [UNRECOGNIZED DRUG - OTHER] PO PRN (09:50)
--- NOTE | 2019-01-04 11:42 | PDGENHP ---
History and Physical - Chief Complaint vomiting, left sided abdominal pain - History of Present Illness 53yo M with history of pancreatic divisum and an episode of pancreatitis presents with vomiting and left sided and epigastric abdominal pain. He has noticed some mild nausea and abdominal pain starting one week ago. Vomiting started abruptly this morning and his pain significantly increased. No fevers or chills. No diarrhea. Symptoms feel similar to prior episode of gastritis. He was unable to manage his symptoms with phenergan and ketorolac at home so came to the ED. His lipase was noted to be 1000. He drinks alcohol 2-3 nights/week and typically has 2-3 beers. His only recent medication change was a decrease in his ranitidine from 300 to 150mg. He is being admitted for pain control. Case discussed with ED physician Rosibel Adams. Prior records reviewed. History Information - Allergies/Home Medication List Allergies/Adverse Reactions: No Known Allergies Allergy (Verified 07/27/18 09:48) Home Medications: Avanafil [Stendra] 100 mg PO DAILY PRN 03/17/17 [Last Taken 2 Weeks Ago ~] buPROPion SR [Wellbutrin 150mg SR (*)] 300 mg PO DAILY 03/17/17 [Last Taken 10/24] Ketorolac Tromethamine [Toradol] 10 mg PO Q6H PRN 01/07/18 [Last Taken 01/06/18 21:00] Escitalopram Oxalate [Lexapro] 10 mg PO DAILY 01/04/19 [Last Taken 01/03/19] Ranitidine HCl [Zantac] 150 mg PO HS 01/04/19 [Last Taken 01/02/19] I have personally reviewed and updated: family history, medical history, social history, surgical history - Past Medical History Additional medical history: 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 requiring nephrostomy and ureteral stent placement in the past, pancreatic divisum, pancreatitis, depression, gastritis - Surgical History Additional surgical history: Left shoulder surgery, ureteral stent and nephrostomy tube placement - Family History Additional family history: No family history of GI malignancies or autoimmune pancreatitis - Social History Smoking Status: Never smoked Alcohol Use: Occasionally Drug Use: Marijuana (occasional THC use) Additional social history: Per HPI, no binge drinking Review of Systems Review of Systems: ROS: 10pt was reviewed & negative except for what was stated in HPI & below Physical Exam Physical Exam: Temp Pulse Resp BP Pulse Ox 36.5 C 54 L 14 149/102 H 90 L 01/04/19 10:58 01/04/19 10:58 01/04/19 10:58 01/04/19 10:58 01/04/19 10:58 O2 (L/minute) 2 Constitutional: no apparent distress, appears nourished, not in pain Eyes: PERRL, anicteric sclera, EOMI Ears, Nose, Mouth, Throat: moist mucous membranes, hearing normal, ears appear normal, no oral mucosal ulcers Cardiovascular: regular rate and rhythym, no murmur, rub, or gallop, No edema Respiratory: no respiratory distress, no rales or rhonchi, clear to auscultation Gastrointestinal: normoactive bowel sounds, no palpable masses, tenderness ( left side and epigastric areas), No hepatosplenomegally, No guarding, No rebound , No distension Genitourinary: no bladder fullness, no bladder tenderness Skin: warm, normal color, no rashes or abrasions, no fluctuance, no induration, No mottled Musculoskeletal: full muscle strength, no muscle tenderness, normal joint ROM, no joint effusions Neurologic: AAOx3 Psychiatric: interacting appropriately, not anxious, not encephalopathic, thought process linear Lab Data & Imaging Review 01/04/19 08:30 01/04/19 08:30 WBC 13.69 10^3/uL (3.80-9.50) H 01/04/19 08:30 RBC 4.91 10^6/uL (4.40-6.38) 01/04/19 08:30 Hgb 16.1 g/dL (13.7-17.5) 01/04/19 08:30 Hct 46.5 % (40.0-51.0) 01/04/19 08:30 MCV 94.7 fL (81.5-99.8) 01/04/19 08:30 MCH 32.8 pg (27.9-34.1) 01/04/19 08:30 MCHC 34.6 g/dL (32.4-36.7) 01/04/19 08:30 RDW 12.9 % (11.5-15.2) 01/04/19 08:30 Plt Count 264 10^3/uL (150-400) 01/04/19 08:30 MPV 11.2 fL (8.7-11.7) 01/04/19 08:30 Neut % (Auto) 80.6 % (39.3-74.2) H 01/04/19 08:30 Lymph % (Auto) 12.9 % (15.0-45.0) L 01/04/19 08:30 [place] % (Auto) 4.7 % (4.5-13.0) 01/04/19 08:30 Eos % (Auto) 0.7 % (0.6-7.6) 01/04/19 08:30 Baso % (Auto) 0.6 % (0.3-1.7) 01/04/19 08:30 Nucleat RBC Rel Count 0.0 % (0.0-0.2) 01/04/19 08:30 Absolute Neuts (auto) 11.05 10^3/uL (1.70-6.50) H 01/04/19 08:30 Absolute Lymphs (auto) 1.76 10^3/uL (1.00-3.00) 01/04/19 08:30 Absolute Monos (auto) 0.64 10^3/uL (0.30-0.80) 01/04/19 08:30 Absolute Eos (auto) 0.09 10^3/uL (0.03-0.40) 01/04/19 08:30 Absolute Basos (auto) 0.08 10^3/uL (0.02-0.10) 01/04/19 08:30 Absolute Nucleated RBC 0.00 10^3/uL (0-0.01) 01/04/19 08:30 Immature Gran % 0.5 % (0.0-1.1) 01/04/19 08:30 Immature Gran # 0.07 10^3/uL (0.00-0.10) 01/04/19 08:30 Sodium 139 mEq/L (135-145) 01/04/19 08:30 Potassium 4.6 mEq/L (3.5-5.2) 01/04/19 08:30 Chloride 106 mEq/L (97-110) 01/04/19 08:30 Carbon Dioxide 25 mEq/l (22-31) 01/04/19 08:30 Anion Gap 8 mEq/L (6-14) 01/04/19 08:30 BUN 26 mg/dL (7-23) H 01/04/19 08:30 Creatinine 1.0 mg/dL (0.7-1.3) 01/04/19 08:30 Estimated GFR > 60 01/04/19 08:30 Glucose 129 mg/dL (70-100) H 01/04/19 08:30 Calcium 9.7 mg/dL (8.5-10.4) 01/04/19 08:30 Total Bilirubin 0.6 mg/dL (0.1-1.4) 01/04/19 08:30 Conjugated Bilirubin 0.3 mg/dL (0.0-0.5) 01/04/19 08:30 Unconjugated Bilirubin 0.3 mg/dL (0.0-1.1) 01/04/19 08:30 AST 53 IU/L (17-59) 01/04/19 08:30 ALT 55 IU/L (21-72) 01/04/19 08:30 Alkaline Phosphatase 56 IU/L (38-126) 01/04/19 08:30 Total Protein 7.3 g/dL (6.3-8.2) 01/04/19 08:30 Albumin 4.4 g/dL (3.5-5.0) 01/04/19 08:30 Triglycerides 73 mg/dL (40-150) 01/04/19 08:30 Lipase 1009 IU/L (23-300) H 01/04/19 08:30 Interpretation: RUQ US: Limited visualization of pancreas, though distal body and tail appear heterogenous in echotexture, likely related to patient's underlying pancreatitis. No biliary stones. Chronic hydronephrosis of the right kidney. Assessment & Plan Assessment: 53yo M with history of pancreatic divisum and an episode of pancreatitis presents with vomiting and left sided and epigastric abdominal pain. Plan: #Acute pancreatitis: Likely triggered by congenital pancreatic divisum. He does use alcohol which puts him at risk but does not binge drink. RUQ US without biliary obstruction. Prior lab work up, including for autoimmune pancreatitis, was unremarkable. No obvious offending medications. - Lactated ringers - Pain and nausea control - NPO except for sips/chips - Discussed case with Dr Martinez of GI. Does not recommend evaluation of pancreatic divisum until inflammation improves, likely as outpatient. He is planning on contacting Dr Evans for outpatient follow up #GERD, h/o gastritis: Reviewed EGD from 12/2015 that was essentially normal. Continue home PPI and H2RA. #Depression: Home meds. VTE ppx: LMWH Code: full Dispo: Admit as inpatient as symptoms will likely require >2 midnights to control and tolerate PO
--- NOTE | 2019-01-04 11:59 | ASMTCMCOM ---
CM Note CM Note Notes: Chart reviewed for discharge planning purposes. Patient admitted via ED with c/o abdominal pain and vomiting. He of gastritis and pancreatitis. Normally lives independent with . CM to follow for needs. Plan: TBD Date Signed: 01/04/2019 11:58 AM Electronically Signed By:Leydi Winn RN
--- NOTE | 2019-01-04 14:39 | PDMN ---
Medical Necessity Medical necessity: MCG M250 pancreatitis: 2 days: acute abd pain with elevated Lipase > 3X, abd imaging showing severe hydronephrosis, with limited view of pancreas due to overlying bowel gas 53yo M with hx of pancreatic divsum and pancreatitis presents with V/ L sided epigastric abd pain. pt will be INPT for ongoing monitoring, eval and tx of above NPO, IVF, IV pain, IV antiemetic's.
[2019-01-04] MEDS: KETOROLAC 15 MG/1 ML SDV IVP PRN ×2 (16:12→22:14)
[2019-01-04] MEDS: oxyCODONE IR 5 MG TAB PO PRN (19:38)
[2019-01-04] MEDS: LR 1,000 ML IV SCH (19:41)
[2019-01-04] MEDS ORDERED: FAMOTIDINE 20 MG TAB PO SCH (21:00)
[2019-01-05] MEDS: oxyCODONE IR 5 MG TAB PO PRN ×2 (00:07→08:53)
[2019-01-05 04:07] LABS: PLATELET COUNT 218 10^3/uL (150-400)
[2019-01-05] MEDS: KETOROLAC 15 MG/1 ML SDV IVP PRN (04:16)
[2019-01-05] MEDS: LR 1,000 ML IV SCH (04:24)
[2019-01-05] MEDS ORDERED: buPROPion SR 150 MG TAB PO SCH (09:00)
[2019-01-05] MEDS ORDERED: ESCITALOPRAM OXALATE 10 MG TAB PO SCH (09:00)
[2019-01-05] MEDS ORDERED: PANTOPRAZOLE SODIUM 40 MG TAB PO SCH (09:00)
[2019-01-05] MEDS ORDERED: ENOXAPARIN 40 MG/0.4 ML SYR SC SCH (09:00)
--- NOTE | 2019-01-05 11:59 | PDDCSUM ---
Discharge Summary Discharge Summary: Date of Admission: 01/04/2019 Date of Discharge: 01/05/2019 Studies: RUQ ultrasound Discharge Diagnoses: 1. Acute epigastric pain, vomiting 2. Acute pancreatitis 3. Pancreatic divisum 4. GERD, h/o gastritis Brief Hospital Course: 53yo M with history of pancreatic divisum and an episode of pancreatitis presented with abrupt onset vomiting and left sided and epigastric abdominal pain. His lipase was elevated at 1000. Abdominal ultrasound showed heterogenous echotexture of the pancreas c/w pancreatitis however no gallstones/biliary dilation. He does continue to drink alcohol (roughly 2-3 beers/day). I suspect the etiology of his pancreatitis was either his divisum or alcohol or a combination of the two. He was treated supportively with fluids and pain medications. He improved faster than anticipated and was tolerating PO with minimal pain on day of discharge. I did discuss the case with gastroenterology and they will see him in follow up in 2 days. Medications: Please refer to EMR for complete list. I wrote a prescription for ketorolac 10mg q6h PRN #30 and have increased his ranitidine from 150mg to 300mg QHS. Otherwise no changes. Follow Up Plan: 1. Has GI appointment in 2 days (01/07/2019) Physical Exam: Vitals reviewed, normotensive and afebrile. Alert and oriented, rrr, lungs clear, abdomen soft and nontender, no bruising, no edema.
--- NOTE | 2019-01-05 12:20 | ASDISCHSUM ---
Discharge Information Plan Status:Home with No Needs Medically Cleared to Leave:01/05/2019 Discharge Date:01/05/2019 CM D/C Disposition:Home, Routine, Self-Care ADT D/C Disposition:Home, Routine, Self-Care Projected Discharge Date:01/05/2019 Transportation at D/C: Discharge Delay Reason: Follow-Up Date:01/05/2019 Discharge Slot: Final Diagnosis: Placement Information Patient Contact Information Contact Name:ISABELLA Relationship: Address:[address] City:[place] Alternate Phone: [facility]/Zip Code:[place] [address] Email: Financial Information Financial Class:[facility] Primary Plan Desc:[facility] Primary Plan Number:[id number] Secondary Plan Desc: Secondary Plan Number: Assessment Information LACE LACE Length of stay for Answers: 1 day current admission Comorbidities - select Answers: Mild liver or renal all that apply disease # of Emergency department Answers: 1-2 visits in the last 6 months Social determinants Answers: Mental health diagnosis (anxiety, depression, pers onality disorders, etc.) Score: 7 Date Signed: 01/05/2019 12:17 PM Electronically Signed By:Leydi Winn RN [facility] Progress Note CM Note CM Note Notes: Chart reviewed for discharge planning purposes. Patient admitted via ED with c/o abdominal pain and vomiting. He of gastritis and pancreatitis. Normally lives independent with . CM to follow for needs. Plan: TBD Date Signed: 01/04/2019 11:58 AM Electronically Signed By:Leydi Winn RN Intervention Information
--- NOTE | 2019-01-05 12:22 | ASMTDCNOTE ---
Case Management Discharge Discharge Order Complete? Answers: Yes Family Notified Answers: Yes Discharge Comments Notes: Patient medically cleared for independent discharge to home. No needs. CM available should needs arise. Date Signed: 01/05/2019 12:21 PM Electronically Signed By:Leydi Winn RN
[2019-01-05 12:38] VITALS: BP 114/78
== END 2019-01-05 13:20 | disposition home or self-care (01) | DRG 439 ==
LOC: OBSVTOIN 09:23 → F1N 10:19
PROVIDERS: ADMIT Internal Medicine; ATTEND Internal Medicine
DX: K85.90 Acute pancreatitis without necrosis or infection, unspecified (principal); K85.20 Alcohol induced acute pancreatitis without necrosis or infection; Q45.3 Other congenital malformations of pancreas and pancreatic duct; K21.9 Gastro-esophageal reflux disease without esophagitis; F32.9 Major depressive disorder, single episode, unspecified
CPT/HCPCS: 96374; J1170; J1650; J1885; J2060; J2270; J2405

== ENCOUNTER 2019-03-09 12:04 | Emergency (ER) | payer OTHER | END 2019-03-09 15:30 | disposition home or self-care (01) ==